=== PATIENT | male | born 1955 | race Caucasian/White ===

== ENCOUNTER 2017-07-21 08:54 | Emergency (ER) | payer BC, MEDICARE ==
--- OUTSIDE RECORDS SUMMARY | 2017-07-21 09:08 | XMS REPORT ---
:1955 External Reference #:[id number] Author Organization [facility] Address [address] [address] Phone [phone] Care Team Providers Name Role Phone David Eduardo DO Care Team Information Company Marker Unavailable Payers Type Date Identification Numbers Payment Provider Subscriber Health Maintenance Effective: Policy Number: [facility] / Marjorie Parrish Jose Laurent Organization (O) 11/22/2012 [id number] Plan PayID: [id number] [address] [place] [address] Medigap Part B Expires: 12/23/2013 [facility] [place] [address] Problems Date Description Provider Status Onset: 11/07/2013 Testicular hypofunction David Eduardo DO Active Onset: 12/28/2012 Mixed hyperlipidemia David Eduardo DO Active Onset: 11/29/2012 Obesity David Eduardo DO Active Onset: 11/29/2012 Insomnia David Eduardo DO Active Onset: 11/29/2012 Chronic obstructive lung disease David Eduardo DO Active Onset: 12/27/2011 Benign essential hypertension Ofe Sepulveda NP Active Onset: 10/15/2014 Pure hypercholesterolemia David Eduardo DO Active Family History Date Family Member(s) Problem(s) Comments General Stroke General Diabetes, Adult General Hypertension General Asthma General Allergies General COPD General Alcoholism General Hypercholesterolemia Mother Cancer, Lung Social History Type Date Description Comments Marital Status Occupation Moving [employer]- [employer] Cigarette Use Former Cigarette Smoker ETOH Use Has consumed alcohol in the past Recreational Drug Use Denies Drug Use Daily Caffeine Consumes on average 4 cups of coffee per day Allergies, Adverse Reactions, Alerts Date Description Reaction Status Severity Comments 08/08/2014 NKDA active 11/29/2012 Seasonal active Medications Medication Date Status Form Strength Qnty SIG Indications Ordering Provider Viagra 07/06 Active Tablets 100mg 6tabs 1/2 to 1 by Eduardo mouth every David, day as DO needed Hydrochlorothiazid 07/06 Active Tablets 25mg 90tab 1 by mouth Eduardo, e s every day DO David Trazodone HCL 10/08 Active Tablets 100mg 30tab Take / To s 1 Tablet By David Mouth At DO Bedtime as Needed Insomnia Cetirizine HCL 07/05 Active Tablets 10mg 90tab 1 PO QHS J30.9 Eduardo s DO David 3ML Syringe/22G X 05/26 Active Misc 22G X 1" 90uni Use as E29.1 Eduardo, 1"/Luer Lock Tip 3 ML ts Directed DO David Clotrimazole/Betam 01/03 Active Cream 1-0.05% 45gm apply topically Mahin Hernandez to affected DO area 2 times a day as needed Lisinopril 12/25 Active Tablets 40mg 90tab 1 By Mouth s Every Day DO David Zetia 12/09 Active Tablets 10mg 30tab 1 By Mouth E78.2 Eduardo s Every Day DO David Testosterone 07/04 Active Solution 200mg/ml 6ml inject 1 Eduardo Cypionate milliliters David every 2 DO weeks im. code f. Clotrimazole/Betam 01/03 Hx Cream 45uni apply twice ts a day to Mahin Hernandez - the r foot DO 01/03 for the next 2 weeks Escitalopram 10/16 Hx Tablets 10mg 30tab 1 By Mouth F32.9 Eduardo, s Every Day David - DO 07/05 Clotrimazole/Betam 03/07 Hx Cream 45gm apply twice Eduardo, ethasone /2013 a day to Jose Roberto Hernandezropionate - the R foot DO 10/16 for the next 2 weeks Clotrimazole/Betam 03/07 Hx Cream 45uni apply twice Eduardo, ethasone ts a day to Candida Hernandezionate - the R foot DO 12/09 for the next 2 weeks Trazodone HCL 11/28 Hx Tablets 100mg 30tab take 1 Eduardo, s tablet po David, - qhs DO 10/16 Trazodone HCL 11/28 Hx Tablets 100mg 30tab take 1 Eduardo, s tablet po David, - qhs DO 12/09 Lisinopril 12/28 Hx Tablets 20mg 90tab 1 by mouth s every day David, - DO 12/25 Aleve PM 00/00 Hx Tablets 220-25mg Unknown /0000 - 10/08 Vital Signs Date Vital Result Comment 07/06/2017 Weight 236.00 lb Heart Rate 72 /min BP Systolic 152 mmHg BP Diastolic 90 mmHg BP Systolic Recheck 148 mmHg BP Diastolic Recheck 86 mmHg Respiratory Rate 18 /min Height 69 inches 5'9" (06/2016) BMI (Body Mass Index) 34.8 kg/m2 01/03/2017 Weight 236.00 lb Heart Rate 80 /min BP Systolic 138 mmHg BP Diastolic 84 mmHg Respiratory Rate 20 /min Height 69 inches 5'9" (06/2016) BMI (Body Mass Index) 34.8 kg/m2 07/05/2016 Weight 240.00 lb Heart Rate 86 /min BP Systolic 162 mmHg BP Diastolic 108 mmHg Respiratory Rate 18 /min Height 69 inches 5'9" (06/2016) BMI (Body Mass Index) 35.4 kg/m2 12/26/2015 Weight 239.00 lb Heart Rate 84 /min BP Systolic 158 mmHg BP Diastolic 86 mmHg BP Systolic Recheck 146 mmHg BP Diastolic Recheck 90 mmHg Respiratory Rate 19 /min Height 69 inches 5'9" BMI (Body Mass Index) 35.3 kg/m2 06/18/2015 Weight 231.00 lb Heart Rate 84 /min BP Systolic 144 mmHg BP Diastolic 88 mmHg Respiratory Rate 19 /min Height 69 inches 5'9" BMI (Body Mass Index) 34.1 kg/m2 06/12/2015 Weight 231.00 lb Heart Rate 72 /min BP Systolic 136 mmHg BP Diastolic 72 mmHg Respiratory Rate 16 /min Height 69 inches 5'9" BMI (Body Mass Index) 34.1 kg/m2 12/09/2014 Weight 222.00 lb Heart Rate 76 /min BP Systolic 154 mmHg BP Diastolic 88 mmHg BP Systolic Recheck 132 mmHg BP Diastolic Recheck 86 mmHg Respiratory Rate 18 /min Height 69 inches 5'9" BMI (Body Mass Index) 32.8 kg/m2 10/16/2014 Weight 221.00 lb Heart Rate 74 /min BP Systolic 130 mmHg BP Diastolic 78 mmHg Respiratory Rate 18 /min Height 69 inches 5'9" 12/10/13 BMI (Body Mass Index) 32.6 kg/m2 06/06/2014 Weight 225.00 lb Heart Rate 72 /min BP Systolic 132 mmHg BP Diastolic 70 mmHg Respiratory Rate 18 /min Height 69 inches 5'9" 12/10/13 04/30/2014 Weight 225.00 lb Heart Rate 72 /min BP Systolic 144 mmHg BP Diastolic 82 mmHg Respiratory Rate 18 /min Height 69 inches 5'9" 12/10/13 03/07/2014 Weight 222.00 lb Same Heart Rate 76 /min BP Systolic 144 mmHg L/LG BP Diastolic 92 mmHg L/LG Respiratory Rate 21 /min Height 69 inches 5'9" 12/10/13 12/10/2013 BP Systolic 136 mmHg BP Diastolic 74 mmHg 12/10/2013 Weight 222.00 lb Heart Rate 80 /min BP Systolic 136 mmHg BP Diastolic 94 mmHg Respiratory Rate 18 /min Height 69 inches 5'9" 12/10/13 12/05/2013 Body Temperature 98.8 F Heart Rate 80 /min BP Systolic 128 mmHg BP Diastolic 82 mmHg Respiratory Rate 18 /min 11/07/2013 Weight 226.00 lb Heart Rate 82 /min BP Systolic 132 mmHg BP Diastolic 90 mmHg Respiratory Rate 21 /min O2 % BldC Oximetry 96 % 08/03/2013 Weight 234.00 lb Heart Rate 72 /min BP Systolic 142 mmHg BP Diastolic 96 mmHg Respiratory Rate 18 /min 07/04/2013 Weight 225.00 lb Heart Rate 70 /min BP Systolic 144 mmHg BP Diastolic 90 mmHg Respiratory Rate 18 /min 04/30/2013 Body Temperature 98.3 F Weight 219.00 lb Heart Rate 64 /min BP Systolic 138 mmHg BP Diastolic 88 mmHg Respiratory Rate 18 /min O2 % BldC Oximetry 96 % 04/26/2013 Body Temperature 98.6 F Weight 220.00 lb Heart Rate 72 /min BP Systolic 130 mmHg BP Diastolic 82 mmHg Respiratory Rate 18 /min 12/28/2012 BP Systolic 136 mmHg BP Diastolic 92 mmHg 12/28/2012 Weight 216.00 lb Heart Rate 68 /min BP Systolic 146 mmHg BP Diastolic 96 mmHg Respiratory Rate 17 /min Height 68.5 inches 5'8.50" (11/2012) 11/29/2012 Weight 215.00 lb Heart Rate 72 /min BP Systolic 130 mmHg BP Diastolic 94 mmHg Respiratory Rate 18 /min Height 68.5 inches 5'8.50" (11/2012) 12/27/2011 Weight 204.00 lb Heart Rate 80 /min BP Systolic 120 mmHg BP Diastolic 82 mmHg Respiratory Rate 20 /min Height 68 inches 5'8" Results Test Date Test Result H/L Range Note Basic (BMP) 07/01/2017 Sodium 140 mmol/L 135-146 1, 2 Potassium 4.8 mmol/L 3.5-5.2 1 Chloride# 100 mmol/L 97-110 1, 3 Carbon Dioxide 31 mmol/L 24-34 1 Glucose 113 mg/dL High 70-105 1 Creatinine 1.1 mg/dL 0.5-1.4 1 Calcium 9.2 mg/dL 8.5-10.2 1 Non Aleksandra Egfr >60 >60 1, 4 Aleksandra Egfr >60 >60 1, 5 Anion Gap 9 mmol/L 7-16 1, 6 BUN 11 mg/dL 6-26 1 Hemoglobin A1c 07/01/2017 Hemoglobin A1c 6.1 % High 4.1-5.9 1 Estimated Average Glucose Calc 128 71-140 1 Laboratory test finding 07/01/2017 TSH 1.71 uIU/mL 0.35-4.94 1 Lipid Treatment 07/01/2017 Cholesterol 197 mg/dL 50-199 1 Triglycerides 93 mg/dL 30-200 1 HDL 41 mg/dL 29-71 1, 7 Chol/ HDL Ratio 4.8 ratio 4.0-6.7 1 VLDL 19 mg/dL 2-29 1 LDL (Calc) 137 mg/dL High 20-99 1, 8 Alt 37 U/L 3-42 1 Ast 25 U/L 8-42 1 CBC With Auto Diff 07/01/2017 WBC 11.0 K/uL 4.1-11.0 1 RBC 4.87 M/uL 4.60-6.10 1 Hemoglobin 15.5 gm/dL 13.5-18.0 1 Hematocrit 47.1 % 41.0-53.0 1 MCV 96.6 fL 80.0-97.0 1 MCH 31.8 pg 27.0-32.0 1 MCHC 32.9 g/dL 32.0-36.0 1 RDW 14.2 % 11.5-14.5 1 PLT Count Unable to report <SEE NOTE> K/ul 140-400 1, 9 MPV Unable to report <SEE NOTE> FL 7.1-10.7 1, 10 Neutrophil 53.9 % 35.0-75.0 1, 11 Lymphocyte 30.2 % 16.0-52.0 1, 12 Monocyte 12.5 % High 2.0-10.0 1, 13 Eosinophil 2.4 % 0.0-5.0 1, 14 Basophil 1.0 % 0.0-4.0 1, 15 Abs Neutrophils 5.9 K/uL 2.1-8.0 1, 16 Abs Lymphocytes 3.3 K/uL 0.8-5.5 1, 17 Abs Monocytes 1.4 K/uL High 0.1-1.0 1, 18 Abs Eosinophils 0.3 K/uL 0.0-0.5 1, 19 Abs Basophils 0.1 K/uL 0.0-0.3 1, 20 Laboratory test finding 07/01/2017 PSA 1.030 ng/mL 0.000-4.000 1, 21 Total Testosterone Adult Male 828 ng/dL 1 Hemoglobin A1c 12/27/2016 Hemoglobin A1c 6.1 % High 4.1-5.9 Estimated Average Glucose Calc 128 71-140 Testosterone,Free & 12/27/2016 Testosterone Total Adult 463 ng/dL Total-Male Male Sex Hormone Binding Globulin 18.5 nmol/L 13.3-89.5 Testosterone Free Adult Male 128 pg/mL 50-247 Testosterone Percent Free 2.8 % 1.8-3.2 Laboratory test finding 12/27/2016 PSA 0.820 ng/mL 0.000-4.000 22 CBC With Auto Diff 12/27/2016 WBC 7.7 K/uL 4.1-11.0 RBC 4.99 M/uL 4.60-6.10 Hemoglobin 15.6 gm/dL 13.5-18.0 Hematocrit 47.3 % 41.0-53.0 MCV 94.7 fL 80.0-97.0 MCH 31.2 pg 27.0-32.0 MCHC 33.0 g/dL 32.0-36.0 RDW 13.7 % 11.5-14.5 PLT Count Platelets clumpe <SEE NOTE> K/ul 140-400 23 Neutrophil 53.3 % 35.0-75.0 Lymphocyte 30.4 % 16.0-52.0 Monocyte 12.7 % High 2.0-10.0 Eosinophil 2.8 % 0.0-5.0 Basophil 0.8 % 0.0-4.0 Abs Neutrophils 4.1 K/uL 2.1-8.0 Abs Lymphocytes 2.3 K/uL 0.8-5.5 Abs Monocytes 1.0 K/uL 0.1-1.0 Abs Eosinophils 0.2 K/uL 0.0-0.5 Abs Basophils 0.1 K/uL 0.0-0.3 Basic (BMP) 12/27/2016 Sodium 139 mmol/L 135-146 24 Potassium 4.6 mmol/L 3.5-5.2 Chloride# 103 mmol/L 97-110 25 Carbon Dioxide 27 mmol/L 24-34 Glucose 120 mg/dL High 70-105 BUN 13 mg/dL 6-26 Creatinine 1.2 mg/dL 0.5-1.4 Calcium 9.5 mg/dL 8.5-10.2 Non Aleksandra Egfr >60 >60 26 Aleksandra Egfr >60 >60 27 Anion Gap 14 mmol/L 7-16 28 Lipid Treatment 12/27/2016 Cholesterol 181 mg/dL 50-199 Triglycerides 97 mg/dL 30-200 HDL 35 mg/dL 29-71 29 Chol/ HDL Ratio 5.2 ratio 4.0-6.7 VLDL 19 mg/dL 2-29 LDL (Calc) 127 mg/dL High 20-99 30 Alt 34 U/L 3-42 Ast 22 U/L 8-42 Laboratory test 12/27/2016 TSH 1.45 uIU/mL 0.35-4.94 finding Laboratory test 12/03/2016 H. Pylori Stool Negative Negative 31, 32 finding Antigen Lipid Treatment 06/28/2016 Cholesterol 239 mg/dL High 50-199 Triglycerides 118 mg/dL 30-200 HDL 42 mg/dL 29-71 33 Chol/ HDL Ratio 5.7 ratio 4.0-6.7 VLDL 24 mg/dL 2-29 LDL (Calc) 173 mg/dL High 20-99 34 Alt 39 U/L 3-42 Ast 29 U/L 8-42 Laboratory test finding 06/28/2016 Total Testosterone Adult 1078 ng/dL High 285-950 Male CBC With Auto Diff 06/28/2016 WBC 12.0 K/uL High 4.1-11.0 RBC 5.08 M/uL 4.60-6.10 Hemoglobin 16.4 gm/dL 13.5-18.0 Hematocrit 48.3 % 41.0-53.0 MCV 95.1 fL 80.0-97.0 MCH 32.3 pg High 27.0-32.0 MCHC 34.0 g/dL 32.0-36.0 RDW 13.1 % 11.5-14.5 PLT Count Platelets clumpe <SEE NOTE> K/ul 140-400 35 Basic (BMP) 06/28/2016 Sodium 138 mmol/L 134-142 Potassium 4.7 mmol/L 3.5-5.2 Chloride 100 mmol/L 97-109 Carbon Dioxide 32 mmol/L 24-34 Glucose 117 mg/dL High 70-105 BUN 11 mg/dL 6-26 Creatinine 1.0 mg/dL 0.5-1.4 Calcium 9.2 mg/dL 8.5-10.2 Anion Gap 11 mmol/L 6-14 Non Aleksandra Egfr >60 >60 36 Aleksandra Egfr >60 >60 37 Laboratory test finding 06/28/2016 PSA 1.200 ng/mL 0.000-4.000 38 Manual Differential 06/28/2016 Neutrophils 55 % 35-75 Lymphocytes 31 % 16-52 Atypical Lymphs 1 0-5 Monocytes 11 % High 0-8 Eosinophils 2 % 0-5 Basophils 0 % 0-4 Platelet Estimate Unable to perfor <SEE NOTE> Normal 39 RBC Morphology Normal Normal Abs Neutrophils# 6.6 K/ul 1.8-7.7 Abs Lymphocytes# 3.7 K/ul 1.2-4.8 Abs Monocytes# 1.3 K/ul High 0.0-0.8 Abs Eosinophils# 0.2 K/ul 0.0-0.5 Abs Basophils# 0.0 K/ul 0.0-0.3 Abs Atypical Lymphocytes# 0.1 K/ul 0.0-0.5 Laboratory test finding 12/19/2015 Total Testosterone Adult 1011 ng/dL High 285-950 40 Male PSA 1.120 ng/mL 0.000-4.000 40, 41 Lipid Treatment 12/19/2015 Cholesterol 230 mg/dL High 50-199 40 Triglycerides 131 mg/dL 30-200 40 HDL 43 mg/dL 29-71 40, 42 Chol/ HDL Ratio 5.3 ratio 4.0-6.7 40 VLDL 26 mg/dL 2-29 40 LDL (Calc) 161 mg/dL High 20-99 40, 43 Alt 31 U/L 3-42 40 Ast 24 U/L 8-42 40 CBC With Auto Diff 12/19/2015 WBC 9.5 K/uL 4.1-11.0 40 RBC 5.10 M/uL 4.60-6.10 40 Hemoglobin 16.2 gm/dL 13.5-18.0 40 Hematocrit 48.0 % 41.0-53.0 40 MCV 94.1 fL 80.0-97.0 40 MCH 31.9 pg 27.0-32.0 40 MCHC 33.9 g/dL 32.0-36.0 40 RDW 13.5 % 11.5-14.5 40 PLT Count Platelets clumpe <SEE NOTE> K/ul 140-400 40, 44 Neutrophil 47.3 % 35.0-75.0 40 Lymphocyte 32.3 % 16.0-52.0 40 Monocyte 12.8 % High 2.0-10.0 40 Eosinophil 6.5 % High 0.0-5.0 40 Basophil 1.1 % 0.0-4.0 40 Abs Neutrophils 4.5 K/uL 2.1-8.0 40 Abs Lymphocytes 3.0 K/uL 0.8-5.5 40 Abs Monocytes 1.2 K/uL High 0.1-1.0 40 Abs Eosinophils 0.6 K/uL High 0.0-0.5 40 Abs Basophils 0.1 K/uL 0.0-0.3 40 Basic (BMP) 12/19/2015 Sodium 137 mmol/L 134-142 40 Potassium 4.9 mmol/L 3.5-5.2 40 Chloride 103 mmol/L 97-109 40 Carbon Dioxide 27 mmol/L 24-34 40 Glucose 112 mg/dL High 70-105 40 BUN 11 mg/dL 6-26 40 Creatinine 1.0 mg/dL 0.5-1.4 40 Calcium 9.4 mg/dL 8.5-10.2 40 Anion Gap 12 mmol/L 6-14 40 Non Aleksandra Egfr >60 >60 40, 45 Aleksandra Egfr >60 >60 40, 46 Laboratory test finding 12/19/2015 TSH 1.87 uIU/mL 0.35-4.94 40 Lipid Treatment 06/04/2015 Cholesterol 218 mg/dL High 50-199 Triglycerides 150 mg/dL 30-200 HDL 35 mg/dL 29-71 47 Chol/ HDL Ratio 6.2 ratio 4.0-6.7 VLDL 30 mg/dL High 2-29 LDL (Calc) 153 mg/dL High 20-99 48 Alt 34 U/L 3-42 Ast 23 U/L 8-42 CBC With Auto Diff 06/04/2015 WBC 8.9 K/uL 4.1-11.0 RBC 5.16 M/uL 4.60-6.10 Hemoglobin 16.2 gm/dL 13.5-18.0 Hematocrit 49.0 % 41.0-53.0 MCV 95.0 fL 80.0-97.0 MCH 31.5 pg 27.0-32.0 MCHC 33.1 g/dL 32.0-36.0 RDW 13.2 % 11.5-14.5 PLT Count Platelets clumpe <SEE NOTE> K/ul 140-400 49 Basic (BMP) 06/04/2015 Sodium 134 mmol/L 134-142 Potassium 4.9 mmol/L 3.5-5.2 Chloride 101 mmol/L 97-109 Carbon Dioxide 28 mmol/L 24-34 Glucose 99 mg/dL 70-105 BUN 12 mg/dL 6-26 Creatinine 0.8 mg/dL 0.5-1.4 Calcium 9.1 mg/dL 8.5-10.2 Anion Gap 10 mmol/L 6-14 Non Aleksandra Egfr >60 >60 50 Aleksandra Egfr >60 >60 51 Laboratory test finding 06/04/2015 Total Testosterone Adult 664 ng/dL 285 -950 Male TSH 1.24 uIU/mL 0.35-4.94 Manual Differential 06/04/2015 Neutrophils 62 % 35-75 Lymphocytes 27 % 16-52 Monocytes 10 % High 0-8 Eosinophils 1 % 0-5 Basophils 0 % 0-4 Platelet Estimate Unable to perfor <SEE NOTE> Normal 52 RBC Morphology Normal Normal Abs Neutrophils# 5.5 K/ul 1.8-7.7 Abs Lymphocytes# 2.4 K/ul 1.2-4.8 Abs Monocytes# 0.9 K/ul High 0.0-0.8 Abs Eosinophils# 0.1 K/ul 0.0-0.5 Abs Basophils# 0.0 K/ul 0.0-0.3 Basic (BMP) 12/04/2014 Sodium 139 mmol/L 134-142 Potassium 4.9 mmol/L 3.5-5.2 Chloride 104 mmol/L 97-109 Carbon Dioxide 28 mmol/L 24-34 Glucose 106 mg/dL High 70-105 BUN 16 mg/dL 6-26 Creatinine 0.9 mg/dL 0.5-1.4 Calcium 9.4 mg/dL 8.5-10.2 Anion Gap 12 mmol/L 6-14 Non Aleksandra Egfr >60 >60 53 Aleksandra Egfr >60 >60 54 CBC With Auto Diff 12/04/2014 WBC 11.2 K/uL High 4.1-11.0 RBC 5.10 M/uL 4.60-6.10 Hemoglobin 16.0 gm/dL 13.5-18.0 Hematocrit 48.0 % 41.0-53.0 MCV 94.0 fL 80.0-97.0 MCH 31.3 pg 27.0-32.0 MCHC 33.3 g/dL 32.0-36.0 RDW 13.7 % 11.5-14.5 PLT Count Platelets clumpe <SEE NOTE> K/ul 140-400 55 Neutrophil 44.2 % 35.0-75.0 Lymphocyte 40.6 % 16.0-52.0 Monocyte 10.9 % High 2.0-10.0 Eosinophil 3.5 % 0.0-5.0 Basophil 0.8 % 0.0-4.0 Abs Neutrophils 4.9 K/uL 2.1-8.0 Abs Lymphocytes 4.5 K/uL 0.8-5.5 Abmon 1.2 K/uL High 0.1-1.0 Abs Eosinophils 0.4 K/uL 0.0-0.5 Abs Basophils 0.1 K/uL 0.0-0.3 Lipid Treatment 12/04/2014 Cholesterol 250 mg/dL High 50-199 Triglycerides 205 mg/dL High 30-200 HDL 32 mg/dL 29-71 56 Chol/ HDL Ratio 7.8 ratio High 4.0-6.7 VLDL 41 mg/dL High 2-29 LDL (Calc) 177 mg/dL High 20-99 57 Alt 30 U/L 3-42 Ast 22 U/L 8-42 Laboratory test finding 12/04/2014 TSH 2.28 uIU/mL 0.35-4.94 Testosterone,Free & 12/04/2014 Testosterone Total Adult 519 ng/dL 285 -950 Total-Male Male Sex Hormone Binding Globulin 23.2 nmol/L 13.3-89.5 Testosterone Free Adult Male 132 pg/mL 50-247 Testosterone Percent Free 2.6 % 1.8-3.2 Laboratory test finding 12/04/2014 PSA 1.290 ng/mL 0.000-4.000 58 Urine Screen 07/11/2014 Urine Bilirubin - Negative Negative Dipstick Urine Blood Negative Negative Urine Clarity Clear Clear Urine Color Yellow Yellow Urine Glucose - Dipstick Negative mg/dL Negative Urine Ketone Negative mg/dL Negative Urine Leuk Esterase Negative Negative Urine Nitrite - Dipstick Negative Negative Urine PH 7.0 6.5-7.5 Urine Protein - Dipstick Negative mg/dL Negative Urine Specific Calera 1.010 1.010-1.030 Urine Urobilinogen - Dipstick 0.2 E.U./dL 0.2-1.0 Laboratory test finding 07/10/2014 Act Partial Thrombo Time 38.7 s High 23.9-34.3 59 Anion Gap 9 mEq/L 8-16 BUN 10 mg/dL 7-18 BUN/Creat 9.0 ratio CK 160 U/L 39-308 Calcium 9.3 mg/dL 8.5-10.1 Carbon Dioxide 30 mmol/L 21-32 Chloride 105 mmol/L 98-107 Creatinine 1.1 mg/dL 0.6-1.3 Glom Filtration Rate, Estimate >60 mL/min >60 Glucose 106 mg/dL 74-106 If >60 mL/min >60 60 Potassium 4.4 mmol/L 3.5-5.1 Sodium 140 mmol/L 136-145 Troponin-I < 0.02 ng/mL 61 CBS W/Automated Diff 07/10/2014 Bas% 0.3 % 0.1-1.0 Baso # 0.03 K/uL Low 0.1-0.2 Eo% 5.1 % High 0.0-5.0 Eos # 0.47 K/uL 0.0-0.5 Hematocrit 45.9 % 38.0-48.0 Hemoglobin 15.6 gm/dL 12.8-17.0 Lymph # 3.23 K/uL 1.2-4.0 Lymph % 35.3 % 17.0-56.0 Mean Cell Volume 93.9 fl 80.0-96.0 Mean Corpuscular HGB 31.9 pg 27.0-33.0 Mean Corpuscular HGB Conc 34.0 g/dL 31.7-36.0 Mean Platelet Volume 10.8 fL High 6.6-10.6 Atlantic # 1.28 K/uL High 0.0-0.6 Atlantic % 14.0 % High 0.0-10.0 Neut# 4.15 K/uL 1.8-7.0 Neut% 45.3 % 33.0-73.0 Platelet Count 363 K/uL 150-400 Red Blood Count 4.89 M/uL 4.20-5.80 Red Cell Distri Width %CV 13.0 % 11.6-15.8 Red Cell Distri Width SD 43.6 fl 36-51 White Blood Count 9.2 K/uL 3.4-10.5 Protime 07/10/2014 Inr 0.9 0.9-1.1 62 Protime 12.1 s 12.1-14.9 LDL Cholesterol Profile 05/03/2014 Cholesterol 234 mg/dL 63 HDL Cholesterol 36 mg/dL 64 LDL-Cholesterol 173 mg/dL 65 Triglycerides 124 mg/dL 66 Laboratory test finding 05/03/2014 Comment See Note . 67 SGPT/Alt 44 U/L 12-78 Sgot/Ast 25 U/L 15-37 Testosterone,Serum 781 ng/dL 348-1197 LDL Cholesterol Profile 10/31/2013 Cholesterol 219 mg/dL High 120-200 HDL Cholesterol 33 mg/dL 29-83 LDL-Cholesterol 157 mg/dL 62-185 Triglycerides 147 mg/dL 16-231 Laboratory test finding 10/31/2013 Alb/Glob 1.1 ratio Albumin 3.7 g/dL 3.5-5.0 Alkaline Phosphatase 74 U/L 50-136 Anion Gap 8 mEq/L 8-16 BUN 11 mg/dL 5-23 BUN/Creat 11.0 ratio Bilirubin,Total 0.5 mg/dL 0.2-1.2 Calcium 9.1 mg/dL 8.5-10.1 Carbon Dioxide 32 mEq/L High 18-29 Chloride 104 mmol/L 98-107 Creatinine 1.0 mg/dL 0.5-1.4 Globulin 3.4 g/dL 1.9-4.3 Glom Filtration Rate, Estimate >60 mL/min >60 Glucose 93 mg/dL 76-115 If >60 mL/min >60 68 NT-proBNP 8.0 pg/mL <325.0 Potassium 3.7 mmol/L 3.5-5.1 Prostate Specific Antigen 0.76 ng/mL 0.00-4.00 69 SGPT/Alt 59 U/L 30-65 Sgot/Ast 24 U/L 16-40 Sodium 140 mmol/L 136-145 Testosterone,Serum 768 ng/dL 348-1197 70 Total Protein 7.1 g/dL 6.3-8.0 Testosterone,Free/Weakly 07/27/2013 Testosterone,%Free/Weakly 27.4 % 9.0- 46.0 Bound BND Testosterone,Free+Weakly Bound 155.6 ng/dL 40.0-250.0 71 Testosterone,Serum 568 ng/dL 348-1197 LDL Cholesterol Profile 07/27/2013 Cholesterol 273 mg/dL High 120-200 HDL Cholesterol 41 mg/dL 29-83 LDL-Cholesterol 210 mg/dL High 62-185 Triglycerides 109 mg/dL 16-231 Laboratory test finding 07/27/2013 Prostate Specific 1.91 ng/mL 0.00- 4.00 72 Antigen SGPT/Alt 40 U/L 30-65 Sgot/Ast 22 U/L 16-40 Thyroid Stim Hormone 1.14 uIU/mL 0.49-4.67 Laboratory test finding 06/29/2013 Alb/Glob 1.8 ratio Albumin 3.9 g/dL 3.5-5.0 Alkaline Phosphatase 72 U/L 50-136 Anion Gap 11 mEq/L 8-16 BUN 16 mg/dL 5-23 BUN/Creat 14.5 ratio Bilirubin,Total 0.3 mg/dL 0.2-1.2 Calcium 9.4 mg/dL 8.5-10.1 Carbon Dioxide 31 mEq/L High 18-29 Chloride 104 mmol/L 98-107 Creatinine 1.1 mg/dL 0.5-1.4 Globulin 2.2 g/dL 1.9-4.3 Glom Filtration Rate, Estimate >60 mL/min >60 Glucose 117 mg/dL High 76-115 Glycohemoglobin (A1c) 5.8 % 4.8-6.0 73 If >60 mL/min >60 74 Potassium 4.6 mmol/L 3.5-5.1 SGPT/Alt 46 U/L 30-65 Sgot/Ast 24 U/L 16-40 Sodium 141 mmol/L 136-145 Testosterone,Serum 472 ng/dL 348-1197 75 Total Protein 6.1 g/dL Low 6.3-8.0 eAG 120 mg/dL LDL Cholesterol Profile 06/29/2013 Cholesterol 272 mg/dL High 120-200 HDL Cholesterol 38 mg/dL 29-83 LDL-Cholesterol 197 mg/dL High 62-185 Triglycerides 186 mg/dL 16-231 Laboratory test finding 05/11/2013 Alb/Glob 0.9 ratio Albumin 3.6 g/dL 3.5-5.0 Alkaline Phosphatase 84 U/L 50-136 Anion Gap 12 mEq/L 8-16 Atypical Lymph% 6 % 0-7 BUN 13 mg/dL 5-23 BUN/Creat 14.4 ratio Band% 5 % 0-8 Bilirubin,Total 0.5 mg/dL 0.2-1.2 Calcium 8.6 mg/dL 8.5-10.1 Carbon Dioxide 26 mEq/L 18-29 Chloride 104 mmol/L 98-107 Creatinine 0.9 mg/dL 0.5-1.4 Eosinophil% 2 % 0-5 Globulin 3.9 g/dL 1.9-4.3 Glom Filtration Rate, Estimate >60 mL/min >60 Glucose 104 mg/dL 76-115 If >60 mL/min >60 76 Lipase 160 U/L 28-380 77 Lymph% 13 % Low 17-56 Monocyte% 12 % High 0-10 Neutrophils% 62 % 33-73 Platelet Estimate Normal Potassium 4.4 mmol/L 3.5-5.1 RBC Morphology Normal SGPT/Alt 56 U/L 30-65 Sgot/Ast 30 U/L 16-40 Sodium 138 mmol/L 136-145 Total Cells Counted 100 #CELLS Total Protein 7.5 g/dL 6.3-8.0 CBS W/Automated Diff 05/11/2013 Hematocrit 42.5 % 38.0-48.0 Hemoglobin 14.4 gm/dL 12.8-17.0 Mean Cell Volume 91.4 fl 80.0-96.0 Mean Corpuscular HGB 31.0 pg 27.0-33.0 Mean Corpuscular HGB Conc 33.9 g/dL 31.7-36.0 Mean Platelet Volume 11.9 fL High 6.6-10.6 Platelet Count 310 K/uL 150-400 Red Blood Count 4.65 M/uL 4.20-5.80 Red Cell Distri Width %CV 12.9 % 11.6-15.8 Red Cell Distri Width SD 42.0 fl 36-51 White Blood Count 15.0 K/uL High 3.4-10.5 Urine Screen 05/11/2013 Urine Bilirubin - Dipstick Negative Negative Urine Blood Negative Negative Urine Clarity Clear Clear Urine Color Yellow Yellow Urine Glucose - Dipstick Negative mg/dL Negative Urine Ketone Negative mg/dL Negative Urine Leuk Esterase Negative Negative Urine Nitrite - Dipstick Negative Negative Urine PH 7.0 6.5-7.5 Urine Protein - Dipstick Negative mg/dL Negative Urine Specific Calera <=1.005 Low 1.010-1.030 Urine Urobilinogen - Dipstick 0.2 E.U./dL 0.2-1.0 Laboratory test finding 02/12/2013 Anion Gap 12 mEq/L 8-16 BUN 20 mg/dL 5-23 BUN/Creat 16.6 ratio Calcium 9.3 mg/dL 8.5-10.1 Carbon Dioxide 29 mEq/L 18-29 Chloride 102 mmol/L 98-107 Creatinine 1.2 mg/dL 0.5-1.4 Glom Filtration Rate, Estimate >60 mL/min >60 Glucose 82 mg/dL 76-115 If >60 mL/min >60 78 Potassium 4.1 mmol/L 3.5-5.1 Prostate-Specific Antigen 0.94 ng/mL 0.0-4.0 79 Sodium 139 mmol/L 136-145 Laboratory test finding 12/15/2012 Alb/Glob 1.3 ratio Albumin 3.8 g/dL 3.5-5.0 Alkaline Phosphatase 61 U/L 50-136 Anion Gap 11 mEq/L 8-16 BUN 12 mg/dL 5-23 BUN/Creat 10.0 ratio Bas% 0.4 % 0.1-1.0 Baso # 0.03 K/uL Low 0.1-0.2 Bilirubin,Total 0.3 mg/dL 0.2-1.2 Calcium 9.1 mg/dL 8.5-10.1 Carbon Dioxide 30 mEq/L High 18-29 Chloride 106 mmol/L 98-107 Creatinine 1.2 mg/dL 0.5-1.4 Eo% 5.0 % 0.0-5.0 Eos # 0.34 K/uL 0.0-0.5 Globulin 3.0 g/dL 1.9-4.3 Glom Filtration Rate, Estimate >60 mL/min >60 Glucose 120 mg/dL High 76-115 Hematocrit 42.5 % 38.0-48.0 Hemoglobin 14.3 gm/dL 12.8-17.0 If >60 mL/min >60 80 Lymph # 2.28 K/uL 1.2-4.0 Lymph % 33.7 % 17.0-56.0 Mean Cell Volume 92.8 fl 80.0-96.0 Mean Corpuscular HGB 31.2 pg 27.0-33.0 Mean Corpuscular HGB Conc 33.6 g/dL 31.7-36.0 Mean Platelet Volume 12.6 fL High 6.6-10.6 Atlantic # 0.99 K/uL High 0.0-0.6 Atlantic % 14.6 % High 0.0-10.0 Neut# 3.13 K/uL 1.8-7.0 Neut% 46.3 % 33.0-73.0 Platelet Count 104 K/uL Low 150-400 Potassium 5.4 mmol/L High 3.5-5.1 Red Blood Count 4.58 M/uL 4.20-5.80 Red Cell Distri Width %CV 13.2 % 11.6-15.8 Red Cell Distri Width SD 44.1 fl 36-51 SGPT/Alt 35 U/L 30-65 Sgot/Ast 21 U/L 16-40 Sodium 142 mmol/L 136-145 Thyroid Stim Hormone 1.47 uIU/mL 0.49-4.67 Total Protein 6.8 g/dL 6.3-8.0 White Blood Count 6.8 K/uL 3.4-10.5 LDL Cholesterol Profile 12/15/2012 Cholesterol 186 mg/dL 120-200 HDL Cholesterol 38 mg/dL 29-83 LDL-Cholesterol 133 mg/dL 62-185 Triglycerides 73 mg/dL 16-231 1 Default Test Order (No Match) DO NOT RELEASE PLT COUNT BEFORE A SCAN IS DONE DO NOT RELEASE PLT COUNT BEFORE A SCAN IS DONE 2 Updated reference range on new analyzer 3 Updated reference range on new analyzer 4 Concerning GFR Guidelines: Normal function or mild renal disease, if clinically at risk: >/=60 mL/min Moderately decreased: 30-59 Severely decreased: 15-29 Renal failure: <15 Glomerular Filtration Rate (GFR) is estimated based on the MDRD equation, which assumes a steady state for creatinine as recommended by the National Kidney Disease Education Program in conjunction with the National Institutes of Health and the National Kidney Foundation. Clinical conditions in which it may be necessary to measure GFR by using clearance methods include extremes of age and body size, severe malnutrition or obesity, diseases of skeletal muscle, paraplegia or quadriplegia, vegetarian diet, rapidly changing kidney function, and calculation of the dose of potentially toxic drugs that are excreted by the kidneys. 5 Concerning GFR Guidelines for Americans: Normal function or mild renal disease, if clinically at risk: >/=60 mL/min Moderately decreased: 30-59 Severely decreased: 15-29 Renal failure: <15 6 Updated reference range on new analyzer 7 Per NCEP ATP III Guidelines: Results lower than 40 mg/dL are suggestive of increased risk for coronary artery disease. Results > or=to 60 mg/dL are considered a negative risk factor. 8 Per NCEP ATP III Guidelines: Normal Population <130 Patients with medical conditions: CHD/DM Optimal: <100 Borderline high: 130-159 High: 160-189 Very high: >189 9 Unable to report platelet count due to platelet clumping. Result amended from () (07/04/2017 11:04 AM) to (Unable to report platelet count due to platelet clumping.) (07/04/2017 11:04 AM) by MARILYN. 10 Unable to report platelet count due to platelet clumping. Result amended from () (07/04/2017 11:04 AM) to (Unable to report platelet count due to platelet clumping.) (07/04/2017 11:04 AM) by MARILYN. 11 Result amended from (Not Reported) (07/04/2017 11:04 AM) to (53.9) (07/04/2017 11:04 AM) by MARILYN. 12 Result amended from (Not Reported) (07/04/2017 11:05 AM) to (30.2) (07/04/2017 11:05 AM) by MARILYN. 13 Result amended from (Not Reported) (07/04/2017 11:05 AM) to (12.5) (07/04/2017 11:05 AM) by MARILYN. 14 Result amended from (Not Reported) (07/04/2017 11:05 AM) to (2.4) (07/04/2017 11:05 AM) by MARILYN. 15 Result amended from (Not Reported) (07/04/2017 11:05 AM) to (1.0) (07/04/2017 11:05 AM) by MARILYN. 16 Result amended from (Not Reported) (07/04/2017 11:05 AM) to (5.9) (07/04/2017 11:05 AM) by MARILYN. 17 Result amended from (Not Reported) (07/04/2017 11:05 AM) to (3.3) (07/04/2017 11:05 AM) by MARILYN. 18 Result amended from (Not Reported) (07/04/2017 11:05 AM) to (1.4) (07/04/2017 11:05 AM) by MARILYN. 19 Result amended from (Not Reported) (07/04/2017 11:06 AM) to (0.3) (07/04/2017 11:06 AM) by MARILYN. 20 Result amended from (Not Reported) (07/04/2017 11:06 AM) to (0.1) (07/04/2017 11:06 AM) by MARILYN. 21 Beginning 09/19/06 PSA values assayed at [facility] uses chemiluminescence methodology manufactured by [employer] for use on the DXI analyzer. Values obtained with different assay methods or kits can not be used interchangeably. Serum PSA measurement is not an absolute test for malignancy. The PSA value should be used in conjunction with information available from clinical evaluation and other diagnostic procedures. 22 Beginning 09/19/06 PSA values assayed at [facility] uses chemiluminescence methodology manufactured by [employer] for use on the DXI analyzer. Values obtained with different assay methods or kits can not be used interchangeably. Serum PSA measurement is not an absolute test for malignancy. The PSA value should be used in conjunction with information available from clinical evaluation and other diagnostic procedures. 23 Platelets clumped but appear normal in number. 24 Updated reference range on new analyzer 25 Updated reference range on new analyzer 26 Concerning GFR Guidelines: Normal function or mild renal disease, if clinically at risk: >/=60 mL/min Moderately decreased: 30-59 Severely decreased: 15-29 Renal failure: <15 Glomerular Filtration Rate (GFR) is estimated based on the MDRD equation, which assumes a steady state for creatinine as recommended by the National Kidney Disease Education Program in conjunction with the National Institutes of Health and the National Kidney Foundation. Clinical conditions in which it may be necessary to measure GFR by using clearance methods include extremes of age and body size, severe malnutrition or obesity, diseases of skeletal muscle, paraplegia or quadriplegia, vegetarian diet, rapidly changing kidney function, and calculation of the dose of potentially toxic drugs that are excreted by the kidneys. 27 Concerning GFR Guidelines for Americans: Normal function or mild renal disease, if clinically at risk: >/=60 mL/min Moderately decreased: 30-59 Severely decreased: 15-29 Renal failure: <15 28 Updated reference range on new analyzer 29 Per NCEP ATP III Guidelines: Results lower than 40 mg/dL are suggestive of increased risk for coronary artery disease. Results > or=to 60 mg/dL are considered a negative risk factor. 30 Per NCEP ATP III Guidelines: Normal Population <130 Patients with medical conditions: CHD/DM Optimal: <100 Borderline high: 130-159 High: 160-189 Very high: >189 31 B96.81 32 Performed at: - [facility] [address] [id number] Infrastructure Analyst: Alma Rosa Edward MD, Phone: [phone] 33 Per NCEP ATP III Guidelines: Results lower than 40 mg/dL are suggestive of increased risk for coronary artery disease. Results > or=to 60 mg/dL are considered a negative risk factor. 34 Per NCEP ATP III Guidelines: Normal Population <130 Patients with medical conditions: CHD/DM Optimal: <100 Borderline high: 130-159 High: 160-189 Very high: >189 35 Platelets clumped but appear normal in number. 36 Concerning GFR Guidelines: Normal function or mild renal disease, if clinically at risk: >/=60 mL/min Moderately decreased: 30-59 Severely decreased: 15-29 Renal failure: <15 Glomerular Filtration Rate (GFR) is estimated based on the MDRD equation, which assumes a steady state for creatinine as recommended by the National Kidney Disease Education Program in conjunction with the National Institutes of Health and the National Kidney Foundation. Clinical conditions in which it may be necessary to measure GFR by using clearance methods include extremes of age and body size, severe malnutrition or obesity, diseases of skeletal muscle, paraplegia or quadriplegia, vegetarian diet, rapidly changing kidney function, and calculation of the dose of potentially toxic drugs that are excreted by the kidneys. 37 Concerning GFR Guidelines for Americans: Normal function or mild renal disease, if clinically at risk: >/=60 mL/min Moderately decreased: 30-59 Severely decreased: 15-29 Renal failure: <15 38 Beginning 09/19/06 PSA values assayed at [facility] uses chemiluminescence methodology manufactured by [employer] for use on the DXI analyzer. Values obtained with different assay methods or kits can not be used interchangeably. Serum PSA measurement is not an absolute test for malignancy. The PSA value should be used in conjunction with information available from clinical evaluation and other diagnostic procedures. 39 Unable to perform accurate count due to platelet clumping 40 Fastin hours 41 Beginning 09/19/06 PSA values assayed at [facility] uses chemiluminescence methodology manufactured by [employer] for use on the DXI analyzer. Values obtained with different assay methods or kits can not be used interchangeably. Serum PSA measurement is not an absolute test for malignancy. The PSA value should be used in conjunction with information available from clinical evaluation and other diagnostic procedures. 42 Per NCEP ATP III Guidelines: Results lower than 40 mg/dL are suggestive of increased risk for coronary artery disease. Results > or=to 60 mg/dL are considered a negative risk factor. 43 Per NCEP ATP III Guidelines: Normal Population <130 Patients with medical conditions: CHD/DM Optimal: <100 Borderline high: 130-159 High: 160-189 Very high: >189 44 Platelets clumped but appear normal in number. 45 Concerning GFR Guidelines: Normal function or mild renal disease, if clinically at risk: >/=60 mL/min Moderately decreased: 30-59 Severely decreased: 15-29 Renal failure: <15 Glomerular Filtration Rate (GFR) is estimated based on the MDRD equation, which assumes a steady state for creatinine as recommended by the National Kidney Disease Education Program in conjunction with the National Institutes of Health and the National Kidney Foundation. Clinical conditions in which it may be necessary to measure GFR by using clearance methods include extremes of age and body size, severe malnutrition or obesity, diseases of skeletal muscle, paraplegia or quadriplegia, vegetarian diet, rapidly changing kidney function, and calculation of the dose of potentially toxic drugs that are excreted by the kidneys. 46 Concerning GFR Guidelines for Americans: Normal function or mild renal disease, if clinically at risk: >/=60 mL/min Moderately decreased: 30-59 Severely decreased: 15-29 Renal failure: <15 47 Per NCEP ATP III Guidelines: Results lower than 40 mg/dL are suggestive of increased risk for coronary artery disease. Results > or=to 60 mg/dL are considered a negative risk factor. 48 Per NCEP ATP III Guidelines: Normal Population <130 Patients with medical conditions: CHD/DM Optimal: <100 Borderline high: 130-159 High: 160-189 Very high: >189 49 Platelets clumped but appear normal in number. 50 Concerning GFR Guidelines: Normal function or mild renal disease, if clinically at risk: >/=60 mL/min Moderately decreased: 30-59 Severely decreased: 15-29 Renal failure: <15 Glomerular Filtration Rate (GFR) is estimated based on the MDRD equation, which assumes a steady state for creatinine as recommended by the National Kidney Disease Education Program in conjunction with the National Institutes of Health and the National Kidney Foundation. Clinical conditions in which it may be necessary to measure GFR by using clearance methods include extremes of age and body size, severe malnutrition or obesity, diseases of skeletal muscle, paraplegia or quadriplegia, vegetarian diet, rapidly changing kidney function, and calculation of the dose of potentially toxic drugs that are excreted by the kidneys. 51 Concerning GFR Guidelines for Americans: Normal function or mild renal disease, if clinically at risk: >/=60 mL/min Moderately decreased: 30-59 Severely decreased: 15-29 Renal failure: <15 52 Unable to perform accurate count due to platelet clumping 53 Concerning GFR Guidelines: Normal function or mild renal disease, if clinically at risk: >/=60 mL/min Moderately decreased: 30-59 Severely decreased: 15-29 Renal failure: <15 Glomerular Filtration Rate (GFR) is estimated based on the MDRD equation, which assumes a steady state for creatinine as recommended by the National Kidney Disease Education Program in conjunction with the National Institutes of Health and the National Kidney Foundation. Clinical conditions in which it may be necessary to measure GFR by using clearance methods include extremes of age and body size, severe malnutrition or obesity, diseases of skeletal muscle, paraplegia or quadriplegia, vegetarian diet, rapidly changing kidney function, and calculation of the dose of potentially toxic drugs that are excreted by the kidneys. 54 Concerning GFR Guidelines for Americans: Normal function or mild renal disease, if clinically at risk: >/=60 mL/min Moderately decreased: 30-59 Severely decreased: 15-29 Renal failure: <15 55 Platelets clumped but appear normal in number. 56 Per NCEP ATP III Guidelines: Results lower than 40 mg/dL are suggestive of increased risk for coronary artery disease. Results > or=to 60 mg/dL are considered a negative risk factor. 57 Per NCEP ATP III Guidelines: Normal Population <130 Patients with medical conditions: CHD/DM Optimal: <100 Borderline high: 130-159 High: 160-189 Very high: >189 58 Beginning 09/19/06 PSA values assayed at [facility] uses an EIA methodology manufactured by [employer] for use on the DXI analyzer. Values obtained with different assay methods or kits can not be used interchangeably. Serum PSA measurement is not an absolute test for malignancy. The PSA value should be used in conjunction with information available from clinical evaluation and other diagnostic procedures. 59 Is patient on anticoagulants? Coumadin Is patient on anticoagulants? None QUERY: Anticoagulant Therapy? QUERY: Date of Last Dose: QUERY: Time of Last Dose: 60 Note: Persistent reduction for 3 months or more in an eGFR <60 mL/min/ 1.73 m2 defines CKD. Patients with eGFR values >/=60 mL/min/1.73 m2 may also have CKD if evidence of persistent proteinuria is present. The original MDRD equation for estimated GFR is not valid for patients less than 18 years of age. Additional information may be found at www.kdoqi.org. 61 0.0 - 0.045 ng/mL: Normal 0.046 - 0.5 ng/mL: Suggestive 0.6 - 1.5 ng/mL: Consistent 62 THERAPEUTIC INR RANGE: 2.0 - 3.0 DVT, Pulmonary embolus, prophylaxis against venous thrombosis or systemic embolization in high risk patients. 2.5 - 3.5 Mechanical heart valves 63 Reference Guidelines*: Desirable: ........... < 200 mg/dL Borderline High: ..... 200-239 mg/dL High: ................ >=240 mg/dL * The National Cholesterol Education Program (NCEP) 64 Reference Guidelines*: Low HDL: ..... < 40 mg/dL Normal: ..... 40-60 mg/ dL Desirable: ... > 60 mg/dL *The National Cholesterol Education Program(NCEP ) 65 Reference Guidelines*: Optimal:........... <100 mg/dL Near Optimal....... 100-129 mg/dL Borderline High.... 130-159 mg/dL High............... 160-189 mg/dL Very High.......... >=190 mg/dL * Source: National Cholesterol Education Program (NCEP) 66 Reference Guidelines*: Normal: ............. < 150 mg/dL Borderline High : .... 150-199 mg/dL High: ............... 200-499 mg/dL Very High: .......... > 500 mg/dL * Source: National Cholesterol Education Program (NCEP) 67 Adult male reference interval is based on a population of lean males up to 40 years old. Performed at: [address] [id number] Infrastructure Analyst: Alma Rosa Edward MD, Phone: [phone] 68 Note: Persistent reduction for 3 months or more in an eGFR <60 mL/min/ 1.73 m2 defines CKD. Patients with eGFR values >/=60 mL/min/1.73 m2 may also have CKD if evidence of persistent proteinuria is present. The original MDRD equation for estimated GFR is not valid for patients less than 18 years of age. Additional information may be found at www.kdoqi.org. 69 THIS ASSAY IS NOT INTENDED A CANCER SCREENING TEST The concentration of PSA in a given specimen, determined with assays from different manufacturers, can vary due to differences in assay methods and reagent specificity. Values obtained from different assay methods cannot be used interchangeably. 70 Performed at: [address] [id number] Infrastructure Analyst: Alma Rosa Edward MD, Phone: [phone] 71 Performed at: [address] [id number] Infrastructure Analyst: Alma Rosa Edward MD, Phone: [phone] Performed at: [address] [id number] Infrastructure Analyst: Alessandro Krishnan MD, Phone: [phone] 72 THIS ASSAY IS NOT INTENDED A CANCER SCREENING TEST The concentration of PSA in a given specimen, determined with assays from different manufacturers, can vary due to differences in assay methods and reagent specificity. Values obtained from different assay methods cannot be used interchangeably. 73 A1c value between 5.7% and 6.4% is considered at increased risk for diabetes. A1c value greater than 6.5 % is considered essentially diagnostic for Type II diabetes. Current guidelines recommend a treatment goal of <7% for diabetic patients. This method will measure glycosylated hemoglobin variants, HbS, HbG , HbH, HbWayne, HbC, HbE, etc. Other hemoglobin- opathies may give incorrect results with this test. 74 Note: Persistent reduction for 3 months or more in an eGFR <60 mL/min/ 1.73 m2 defines CKD. Patients with eGFR values >/=60 mL/min/1.73 m2 may also have CKD if evidence of persistent proteinuria is present. The original MDRD equation for estimated GFR is not valid for patients less than 18 years of age. Additional information may be found at www.kdoqi.org. 75 Performed at: RN - [facility] [address] [id number] Infrastructure Analyst: Alma Rosa Edward MD, Phone: [phone] 76 Note: Persistent reduction for 3 months or more in an eGFR <60 mL/min/ 1.73 m2 defines CKD. Patients with eGFR values >/=60 mL/min/1.73 m2 may also have CKD if evidence of persistent proteinuria is present. The original MDRD equation for estimated GFR is not valid for patients less than 18 years of age. Additional information may be found at www.kdoqi.org. 77 Specimen slightly Hemolyzed, interpret with caution 78 Note: Persistent reduction for 3 months or more in an eGFR <60 mL/min/ 1.73 m2 defines CKD. Patients with eGFR values >/=60 mL/min/1.73 m2 may also have CKD if evidence of persistent proteinuria is present. The original MDRD equation for estimated GFR is not valid for patients less than 18 years of age. Additional information may be found at www.kdoqi.org. 79 THIS ASSAY IS NOT INTENDED A CANCER SCREENING TEST The concentration of PSA in a given specimen, determined with assays from different manufacturers, can vary due to differences in assay methods and reagent specificity. Values obtained from different assay methods cannot be used interchangeably. 80 Note: Persistent reduction for 3 months or more in an eGFR <60 mL/min/ 1.73 m2 defines CKD. Patients with eGFR values >/=60 mL/min/1.73 m2 may also have CKD if evidence of persistent proteinuria is present. The original MDRD equation for estimated GFR is not valid for patients less than 18 years of age. Additional information may be found at www.kdoqi.org. Procedures Date CPT Code Description Status Comment 10/13/2016 Colonoscopy Completed Document: 10/13/16 - Colonoscopy 05/26/2016 [id number] Admin Of Inj (Therapeutic Completed Phrophylactic Or Diagnostic Subq Inj 05/06/2016 [id number] Admin Of Inj (Therapeutic Completed Phrophylactic Or Diagnostic Subq Inj 04/22/2016 [id number] Admin Of Inj (Therapeutic Completed Phrophylactic Or Diagnostic Subq Inj 04/08/2016 [id number] Admin Of Inj (Therapeutic Completed Phrophylactic Or Diagnostic Subq Inj 03/25/2016 [id number] Admin Of Inj (Therapeutic Completed Phrophylactic Or Diagnostic Subq Inj 03/11/2016 [id number] Admin Of Inj (Therapeutic Completed Phrophylactic Or Diagnostic Subq Inj 02/26/2016 [id number] Admin Of Inj (Therapeutic Completed Phrophylactic Or Diagnostic Subq Inj 02/12/2016 [id number] Admin Of Inj (Therapeutic Completed Phrophylactic Or Diagnostic Subq Inj 01/29/2016 [id number] Admin Of Inj (Therapeutic Completed Phrophylactic Or Diagnostic Subq Inj 01/15/2016 [id number] Admin Of Inj (Therapeutic Completed Phrophylactic Or Diagnostic Subq Inj 01/01/2016 [id number] Admin Of Inj (Therapeutic Completed Phrophylactic Or Diagnostic Subq Inj 12/18/2015 [id number] Admin Of Inj (Therapeutic Completed Phrophylactic Or Diagnostic Subq Inj 12/04/2015 [id number] Admin Of Inj (Therapeutic Completed Phrophylactic Or Diagnostic Subq Inj 11/20/2015 [id number] Admin Of Inj (Therapeutic Completed Phrophylactic Or Diagnostic Subq Inj 11/06/2015 [id number] Admin Of Inj (Therapeutic Completed Phrophylactic Or Diagnostic Subq Inj 10/23/2015 [id number] Admin Of Inj (Therapeutic Completed Phrophylactic Or Diagnostic Subq Inj 10/09/2015 [id number] Admin Of Inj (Therapeutic Completed Phrophylactic Or Diagnostic Subq Inj 09/25/2015 [id number] Admin Of Inj (Therapeutic Completed Phrophylactic Or Diagnostic Subq Inj 09/11/2015 [id number] Admin Of Inj (Therapeutic Completed Phrophylactic Or Diagnostic Subq Inj 08/28/2015 [id number] Admin Of Inj (Therapeutic Completed Phrophylactic Or Diagnostic Subq Inj 08/14/2015 [id number] Admin Of Inj (Therapeutic Completed Phrophylactic Or Diagnostic Subq Inj 07/31/2015 [id number] Admin Of Inj (Therapeutic Completed Phrophylactic Or Diagnostic Subq Inj 07/17/2015 [id number] Echography Retroperitoneal Completed Complete 07/09/2015 [id number] Admin Of Inj (Therapeutic Completed Phrophylactic Or Diagnostic Subq Inj 06/25/2015 [id number] Admin Of Inj (Therapeutic Completed Phrophylactic Or Diagnostic Subq Inj 06/11/2015 [id number] Admin Of Inj (Therapeutic Completed Phrophylactic Or Diagnostic Subq Inj 05/28/2015 [id number] Admin Of Inj (Therapeutic Completed Phrophylactic Or Diagnostic Subq Inj 05/14/2015 [id number] Admin Of Inj (Therapeutic Completed Phrophylactic Or Diagnostic Subq Inj 04/30/2015 [id number] Admin Of Inj (Therapeutic Completed Phrophylactic Or Diagnostic Subq Inj 04/16/2015 [id number] Admin Of Inj (Therapeutic Completed Phrophylactic Or Diagnostic Subq Inj 03/27/2015 [id number] Admin Of Inj (Therapeutic Completed Phrophylactic Or Diagnostic Subq Inj 03/13/2015 [id number] Admin Of Inj (Therapeutic Completed Phrophylactic Or Diagnostic Subq Inj 02/27/2015 [id number] Admin Of Inj (Therapeutic Completed Phrophylactic Or Diagnostic Subq Inj 02/13/2015 [id number] Admin Of Inj (Therapeutic Completed Phrophylactic Or Diagnostic Subq Inj 01/30/2015 [id number] Admin Of Inj (Therapeutic Completed Phrophylactic Or Diagnostic Subq Inj 01/08/2015 [id number] Admin Of Inj (Therapeutic Completed Phrophylactic Or Diagnostic Subq Inj 12/25/2014 [id number] Admin Of Inj (Therapeutic Completed Phrophylactic Or Diagnostic Subq Inj 11/25/2014 [id number] Admin Of Inj (Therapeutic Completed Phrophylactic Or Diagnostic Subq Inj 11/06/2014 [id number] Admin Of Inj (Therapeutic Completed Phrophylactic Or Diagnostic Subq Inj 10/23/2014 [id number] Admin Of Inj (Therapeutic Completed Phrophylactic Or Diagnostic Subq Inj 10/09/2014 [id number] Admin Of Inj (Therapeutic Completed Phrophylactic Or Diagnostic Subq Inj 09/23/2014 [id number] Admin Of Inj (Therapeutic Completed Phrophylactic Or Diagnostic Subq Inj 09/05/2014 [id number] Admin Of Inj (Therapeutic Completed Phrophylactic Or Diagnostic Subq Inj 08/22/2014 [id number] Admin Of Inj (Therapeutic Completed Phrophylactic Or Diagnostic Subq Inj 08/08/2014 [id number] Admin Of Inj (Therapeutic Completed Phrophylactic Or Diagnostic Subq Inj 07/24/2014 [id number] Admin Of Inj (Therapeutic Completed Phrophylactic Or Diagnostic Subq Inj 07/09/2014 [id number] Admin Of Inj (Therapeutic Completed Phrophylactic Or Diagnostic Subq Inj 06/24/2014 [id number] Admin Of Inj (Therapeutic Completed Phrophylactic Or Diagnostic Subq Inj 05/23/2014 [id number] Admin Of Inj (Therapeutic Completed Phrophylactic Or Diagnostic Subq Inj 05/10/2014 [id number] Admin Of Inj (Therapeutic Completed Phrophylactic Or Diagnostic Subq Inj 04/25/2014 [id number] Admin Of Inj (Therapeutic Completed Phrophylactic Or Diagnostic Subq Inj 04/11/2014 [id number] Admin Of Inj (Therapeutic Completed Phrophylactic Or Diagnostic Subq Inj 03/28/2014 [id number] Admin Of Inj (Therapeutic Completed Phrophylactic Or Diagnostic Subq Inj 03/14/2014 [id number] Admin Of Inj (Therapeutic Completed Phrophylactic Or Diagnostic Subq Inj 02/28/2014 [id number] Admin Of Inj (Therapeutic Completed Phrophylactic Or Diagnostic Subq Inj 02/14/2014 [id number] Admin Of Inj (Therapeutic Completed Phrophylactic Or Diagnostic Subq Inj 01/30/2014 [id number] Admin Of Inj (Therapeutic Completed Phrophylactic Or Diagnostic Subq Inj 01/16/2014 [id number] Admin Of Inj (Therapeutic Completed Phrophylactic Or Diagnostic Subq Inj 01/02/2014 [id number] Admin Of Inj (Therapeutic Completed Phrophylactic Or Diagnostic Subq Inj 12/19/2013 [id number] Admin Of Inj (Therapeutic Completed Phrophylactic Or Diagnostic Subq Inj 12/10/2013 [id number] Screening Hearing Test Completed 12/10/2013 [id number] Visual Screening Test Completed 12/05/2013 [id number] Admin Of Inj (Therapeutic Completed Phrophylactic Or Diagnostic Subq Inj 11/21/2013 [id number] Admin Of Inj (Therapeutic Completed Phrophylactic Or Diagnostic Subq Inj 11/07/2013 [id number] Admin Of Inj (Therapeutic Completed Phrophylactic Or Diagnostic Subq Inj 11/07/2013 17030 Measure Blood Oxygen Level Completed Single Determination 10/24/2013 36753 Admin Of Inj (Therapeutic Completed Phrophylactic Or Diagnostic Subq Inj 10/09/2013 71643 Admin Of Inj (Therapeutic Completed Phrophylactic Or Diagnostic Subq Inj 09/25/2013 46369 Admin Of Inj (Therapeutic Completed Phrophylactic Or Diagnostic Subq Inj 09/11/2013 49571 Admin Of Inj (Therapeutic Completed Phrophylactic Or Diagnostic Subq Inj 08/28/2013 36384 Admin Of Inj (Therapeutic Completed Phrophylactic Or Diagnostic Subq Inj 08/14/2013 64626 Admin Of Inj (Therapeutic Completed Phrophylactic Or Diagnostic Subq Inj 07/30/2013 20796 Admin Of Inj (Therapeutic Completed Phrophylactic Or Diagnostic Subq Inj 07/16/2013 55632 Admin Of Inj (Therapeutic Completed Phrophylactic Or Diagnostic Subq Inj 07/05/2013 21895 Admin Of Inj (Therapeutic Completed Phrophylactic Or Diagnostic Subq Inj 04/30/2013 14520 Measure Blood Oxygen Level Completed Single Determination 11/29/2012 27861 Screening Hearing Test Completed 08/04/2012 Colonoscopy Completed colitis, polyp 12/27/2011 90777 Visual Screening Test Completed 12/27/2011 49268 Screening Hearing Test Completed Encounters Type Date Location Provider CPT E/M Dx Office Visit 01/03/2017 8:30a [facility] [place] [address] R73.01 E03.9 E78.2 N40.0 E29.1 K57.33 G47.00 E66.09 J30.9 I10 D48.5 Office Visit 07/05/2016 8:00a [facility] [place] [place] [address] E78.2 E29.1 N40.0 E03.9 K57.33 F32.9 G47.00 E66.09 J30.9 R73.01 Office Visit 12/26/2015 8:00a [facility] [place] [place] [address] E29.1 E78.2 R06.02 L72.3 K57.33 F32.9 G47.00 N40.0 E66.09 Office Visit 06/18/2015 1:00p [facility] [place] [place] [address] N28.9 K62.5 K57.33 E29.1 E78.2 I10 F32.9 G47.00 N40.0 Office Visit 06/12/2015 3:15p [facility] [place] [address] R10.32 K62.5 Office Visit 12/09/2014 1:00p [facility] [place] [address] 272.2 311 401.1 257.2 782.3 780.52 288.60 Office Visit 10/16/2014 8:30a [facility] [place] [id number] Plan of Care Future Appointment(s):12/28/2017 7:55 am - Schedule, Laboratory at [facility]2017 8:00 am - David Eduardo DO at [facility]07/06/2017 - David Eduardo DOR73.01 Impaired fasting glucoseNew Labs:Hemoglobin A1cE03.9 Hypothyroidism, unspecifiedNew Labs:TSHE78.2 Mixed hyperlipidemiaNew Labs:CBC With Auto DiffBasic (BMP)Lipid TreatmentFollow up:Get fasting lab work done in 6 months, then see me a few days later.N40.0 Benign prostatic hyperplasia without lower urinry tract sympNew Labs:PSAE29.1 Testicular hypofunctionNew Labs:Testosterone, Total-MaleK57.33 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
[2017-07-21 09:22] VITALS: BP 147/82
--- NOTE | 2017-07-21 10:37 | UC ---
FLU HPI - HPI Summary HPI Summary: 61 year old male with cough. c/o temp- 103, productive cough- unknown secretions , chills, sweating, and hard time getting air in. Lungs are sore. Concerned for pneumonia. Symptoms started yesterday. Feels very fatigued. [ End ] - History of Current Complaint Chief Complaint: UCRespiratory Stated Complaint: BODY ACHES/CHEST TYRESE/HEAVY BREATHING Time Seen by Provider: 07/21/17 10:13 Hx Obtained From: Patient Onset/Duration: Sudden Onset Severity Currently: Severe Severity Initially: Severe Associated Signs & Symptoms: Positive: Fever, Myalgia, Cough, Sore Throat, Nasal Congestion, Headache - Allergy/Home Medications Allergies/Adverse Reactions: Allergies Allergy/AdvReac Type Severity Reaction Status Date / Time No Known Allergies Allergy Verified 07/21/17 09:13 Home Medications: Home Medications Ibuprofen [Ibuprofen 200 MG] 400 mg PO Q4H PRN 07/21/17 [History Confirmed 07/21] Lisinopril [Zestril 10 MG-] 10 mg PO DAILY 07/21/17 [History Confirmed 07/21/17] traZODone TAB* [Desyrel TAB*] 150 mg PO BEDTIME 07/21/17 [History Confirmed ] PMH/Surg Hx/FS Hx/Imm Hx Previously Healthy: Yes Cardiovascular History: Hypertension - Surgical History Surgical History: Yes Surgery Procedure, Year, and Place: spleenectomy. Tonsils. 5 ACL. appy. 7 hernia's - Family History Known Family History: Positive: None - Social History Occupation: Employed Full-time Lives: With Family Alcohol Use: Occasionally Substance Use Type: None Smoking Status (MU): Former Smoker - Immunization History Most Recent Influenza Vaccination: not this season Review of Systems Constitutional: Fever, Chills, Fatigue ENT: Sinus Congestion Respiratory: Cough Musculoskeletal: Myalgia Neurological: Headache Is Patient Immunocompromised?: No All Other Systems Reviewed And Are Negative: Yes Physical Exam Triage Information Reviewed: Yes Appearance: Well-Appearing, No Pain Distress, Well-Nourished Vital Signs: Initial Vital Signs Temp 99.7 F 07/21/17 09:15 Pulse 88 07/21/17 09:15 Resp 20 07/21/17 09:15 BP 147/82 07/21/17 09:15 Pulse Ox 94 07/21/17 09:15 Vital Signs Reviewed: Yes Eye Exam: Normal ENT Exam: Normal Dental Exam: Normal Neck exam: Normal Neck: Positive: 1 Respiratory Exam: Normal Respiratory: Positive: Chest non-tender, Decreased breath sounds - Right sided, Crackles - RLL, Wheezing - expiratory Right sided Cardiovascular Exam: Normal Abdominal Exam: Normal Musculoskeletal Exam: Normal Neurological Exam: Normal Psychological Exam: Normal Skin Exam: Normal Diagnostics - Laboratory Diagnostic Studies Completed/Ordered: xray NAD Flu Course/Dx - Course Course Of Treatment: supportive treatment. - Differential Dx/Diagnosis Differential Diagnosis/HQI/PQRI: Bronchitis, Influenza, Pneumonia, RSV, Upper Respiratory Infection Provider Diagnoses: Viral Pneumonia Discharge - Discharge Plan Condition: Good Disposition: HOME Patient Education Materials: Pneumonia (ED) Forms: *Work Release Referrals: David Eduardo DO [Primary Care Provider] - 4 Days Additional Instructions: Your xray was negative for acute concerns. We believe you have a viral pneumonia and advise rest and hydration.
--- NOTE | 2017-07-21 10:38 | RAD ---
INDICATION: Cough, shortness of breath. Body aches. COMPARISON: August 29, [address] TECHNIQUE: Dual energy PA and routine lateral views of the chest were obtained. REPORT: Clear lungs and pleural spaces. Negative for pneumothorax. The heart, pulmonary vasculature, and mediastinal contours are unremarkable. Unremarkable osseous structures and soft tissue contours for age. IMPRESSION: No evidence for pneumonia. Negative exam.
== END 2017-07-21 11:06 | disposition home or self-care (01) ==
LOC: UCCORT 08:54
DX: J12.9 Viral pneumonia, unspecified (principal); I10 Essential (primary) hypertension; Z87.891 Personal history of nicotine dependence
CPT/HCPCS: 71020; 87502; 99201; G0463

== ENCOUNTER 2018-02-27 10:48 | Emergency (ER) | payer BC, OTHER ==
[2018-02-27 11:17] VITALS: BP 136/76
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
[2018-02-27] MEDS ORDERED: Tetan/Diph/Pertus SYR(Tdap)* 0.5 ML SYR(BOOSTRIX) use SYR IM ONE (11:51)
== END 2018-02-27 12:05 | disposition home or self-care (01) ==
LOC: UCCORT 10:48
DX: F17.210 Nicotine dependence, cigarettes, uncomplicated (principal); S01.01XA Laceration without foreign body of scalp, initial encounter; W22.8XXA Striking against or struck by other objects, initial encounter; Y93.H2 Activity, gardening and landscaping; Y92.9 Unspecified place or not applicable
CPT/HCPCS: 12001; 90471; 90715; 99211; G0463

== ENCOUNTER 2018-03-26 19:36 | Emergency (ER) | payer BC, OTHER ==
--- OUTSIDE RECORDS SUMMARY | 2018-03-26 19:54 | XMS REPORT ---
:1955 External Reference #:[id number] Author Organization [facility] Address [address] [address] Phone [phone] Care Team Providers Name Role Phone David Eduardo DO Care Team Information Personnel Administrator Unavailable Payers Type Date Identification Numbers Payment Provider Subscriber Health Maintenance Effective: Policy Number: [facility] Jose Laurent Organization ([facility]) 11/22/2012 [id number] Plan Group Number: [id number] [address] Group Name: [place] [address] PayID: [id number] Workers Compensation Onset: 03/01/2018 Policy Number: [facility] Jose Laurent [id number] Insurance Fund [place]: [id number] [address] [address] [place] [address] Medigap Part B Expires: 12/23/2013 Policy Number: 0 [employer] Jose Laurent [facility] [place] [address] Problems Date Description Provider Status Onset: 11/07/2013 [...] Date Description Comments Marital Status Occupation Moving [employer] Cigarette Use Former Cigarette Smoker ETOH Use Has consumed alcohol in the past Recreational Drug Use Denies Drug Use Daily Caffeine Consumes on average 4 cups of coffee per day Allergies, Adverse Reactions, Alerts Date Description Reaction Status Severity Comments 08/08/2014 NKDA active 11/29/2012 Seasonal active Medications Medication Date Status Form Strength Qnty SIG Indications Ordering Provider Proair HFA 02/01 Active Aerosol 108(90Bas 8.5un inhale two Eduardo e) its puffs by David mcg/Act mouth every DO 4 hours as needed Trazodone HCL 07/26 Active Tablets 150mg 90tab Take 1 Eduardo, s Tablet By David Mouth AT DO Bedtime as Needed- Cancel 100 MG Script Already Sent Viagra 07/06 Active Tablets 100mg 6tabs / to 1 by Jayce, mouth every David, day as DO needed Hydrochlorothiazid 07/06 Active Tablets 25mg 90tab 1 By Mouth Jayce, e s Every Day DO David Cetirizine HCL 07/05 Active Tablets 10mg 90tab 1 PO QHS J30.9 Eduardo, s DO David 3ML Syringe/22G X 05/26 Active Misc 22G X 1" 90uni Use as E29.1 Eduardo, 1"/Luer Lock Tip 3 ML ts Directed DO David Clotrimazole/Betam 01/03 Active Cream 1-0.05% 45gm apply Jayce ethasone topically David Dipropionate to affected DO area 2 times a day as needed Lisinopril 12/25 Active Tablets 40mg 90tab 1 By Mouth Eduardo, s Every Day DO David Zetia 12/09 Active Tablets 10mg 30tab 1 By Mouth E78.2 Eduardo, s Every Day DO David Testosterone 07/04 Active Solution 200mg/ml 6ml inject 1 Jayce Cypionate milliliters David, every 2 DO weeks im. code f. please do not fill till 02/20/18 Ventolin HFA 02/01 Hx Aerosol 108(90Bas 18uni 2 puffs , e) ts every 4 David, - mcg/Act hours as DO 02/01 needed Trazodone HCL 10/08 Hx Tablets 100mg 30tab Take 1/2 To Eduardo, s 1 Tablet By David, - Mouth AT DO 07/26 Bedtime as Needed Insomnia Clotrimazole/Betam 01/03 Hx Cream 45uni apply twice Eduardo, ethasone ts a day to David Dipropionate - the r foot DO 01/03 for the next 2 weeks Escitalopram 10/16 Hx Tablets 10mg 30tab 1 By Mouth F32.9 Eduardo, s Every Day David, - DO 07/05 Clotrimazole/Betam 03/07 Hx Cream [...] Hx Tablets 100mg 30tab take 1 Eduardo, /2013 s tablet po David, - qhs DO 12/09 Lisinopril 12/28 Hx Tablets 20mg 90tab 1 by mouth Eduardo, s every day David, - DO 12/25 Aleve PM 00 Hx Tablets 220-25mg Unknown /0000 - 10/08 Immunizations CPT Code Status Date Vaccine Lot # [id number] Given 02/27/2018 Tdap (Adacel) Ages 7 And Above Only Vital Signs Date Vital Result Comment 03/09/2018 Weight 226.00 lb Heart Rate 80 /min BP Systolic 144 mmHg BP Diastolic 86 mmHg Respiratory Rate 18 /min 01/04/2018 Weight 227.00 lb Heart Rate 67 /min BP Systolic 136 mmHg BP Diastolic 76 mmHg Respiratory Rate 14 /min 07/06/2017 Weight 236.00 lb Heart Rate 72 [...] Test Date Test Result H/L Range Note Laboratory test finding 12/28/2017 Total Testosterone Adult 471 ng/dL 285 -650 1 Male PSA 1.360 ng/mL 0.000-4.000 1, 2 Hemoglobin A1c 12/28/2017 Hemoglobin A1c 6.2 % High 4.1-5.9 1 Estimated Average Glucose Calc 131 mg/dL 71-140 1 Laboratory test finding 12/28/2017 TSH 1.97 uIU/mL 0.35-4.94 1 CBC With Auto Diff 12/28/2017 WBC 11.9 K/uL High 4.1-11.0 1 RBC 4.92 M/uL 4.60-6.10 1 Hemoglobin 15.7 gm/dL 13.5-18.0 1 Hematocrit 46.5 % 41.0-53.0 1 MCV 94.6 fL 80.0-97.0 1 MCH 32.0 pg 27.0-32.0 1 MCHC 33.8 g/dL 32.0-36.0 1 RDW 13.6 % 11.5-14.5 1 PLT Count SEE NOTE K/ul 140-400 1, 3 MPV SEE NOTE FL 7.1-10.7 1, 4 Basic (BMP) 12/28/2017 Sodium 138 mmol/L 135-146 1, 5 Potassium 5.1 mmol/L 3.5-5.2 1 Chloride# 98 mmol/L 97-110 1, 6 Carbon Dioxide 32 mmol/L 24-34 1 Glucose 120 mg/dL High 70-105 1 BUN 14 mg/dL 6-26 1 Creatinine 1.1 mg/dL 0.5-1.4 1 Calcium 9.9 mg/dL 8.5-10.2 1 Non Aleksandra Egfr >60 >60 1, 7 Aleksandra Egfr >60 >60 1, 8 Anion Gap 8 mmol/L 5-15 1, 9 Lipid Treatment 12/28/2017 Cholesterol 211 mg/dL High 50-199 1 Triglycerides 123 mg/dL 30-200 1 HDL 39 mg/dL 29-71 1, 10 Chol/ HDL Ratio 5.4 ratio 4.0-6.7 1 VLDL 25 mg/dL 2-29 1 LDL (Calc) 147 mg/dL High 20-99 1, 11 Alt 27 U/L 3-42 1 Ast 24 U/L 8-42 1 Hemoglobin A1c 07/01/2017 Hemoglobin A1c 6.1 % High 4.1-5.9 12 Estimated Average Glucose Calc 128 71-140 12 Laboratory test finding 07/01/2017 TSH 1.71 uIU/mL 0.35-4.94 12 Lipid Treatment 07/01/2017 Cholesterol 197 mg/dL 50-199 12 Triglycerides 93 mg/dL 30-200 12 HDL 41 mg/dL 29-71 12, 13 Chol/ HDL Ratio 4.8 ratio 4.0-6.7 12 VLDL 19 mg/dL 2-29 12 LDL (Calc) 137 mg/dL High 20-99 12, 14 Alt 37 U/L 3-42 12 Ast 25 U/L 8-42 12 Laboratory test finding 07/01/2017 PSA 1.030 ng/mL 0.000-4.000 12, 15 Total Testosterone Adult Male 828 ng/dL 12 CBC With Auto Diff 07/01/2017 WBC 11.0 K/uL 4.1-11.0 12 RBC 4.87 M/uL 4.60-6.10 12 Hemoglobin 15.5 gm/dL 13.5-18.0 12 Hematocrit 47.1 % 41.0-53.0 12 MCV 96.6 fL 80.0-97.0 12 MCH 31.8 pg 27.0-32.0 12 MCHC 32.9 g/dL 32.0-36.0 12 RDW 14.2 % 11.5-14.5 12 PLT Count Unable to report <SEE NOTE> K/ul 140-400 12, 16 MPV Unable to report <SEE NOTE> FL 7.1-10.7 12, 17 Neutrophil 53.9 % 35.0-75.0 12, 18 Lymphocyte 30.2 % 16.0-52.0 12, 19 Monocyte 12.5 % High 2.0-10.0 12, 20 Eosinophil 2.4 % 0.0-5.0 12, 21 Basophil 1.0 % 0.0-4.0 12, 22 Abs Neutrophils 5.9 K/uL 2.1-8.0 12, 23 Abs Lymphocytes 3.3 K/uL 0.8-5.5 12, 24 Abs Monocytes 1.4 K/uL High 0.1-1.0 12, 25 Abs Eosinophils 0.3 K/uL 0.0-0.5 12, 26 Abs Basophils 0.1 K/uL 0.0-0.3 12, 27 Basic (BMP) 07/01/2017 Sodium 140 mmol/L 135-146 12, 28 Potassium 4.8 mmol/L 3.5-5.2 12 Chloride# 100 mmol/L 97-110 12, 29 Carbon Dioxide 31 mmol/L 24-34 12 Glucose 113 mg/dL High 70-105 12 Creatinine 1.1 mg/dL 0.5-1.4 12 Calcium 9.2 mg/dL 8.5-10.2 12 Non Aleksandra Egfr >60 >60 12, 30 Aleksandra Egfr >60 >60 12, 31 Anion Gap 9 mmol/L 7-16 12, 32 BUN 11 mg/dL 6-26 12 Hemoglobin A1c 12/27/2016 Hemoglobin A1c 6.1 % High 4.1-5.9 Estimated Average Glucose Calc 128 71-140 Testosterone,Free & Total-Male 12/27/2016 Testosterone Total Adult 463 ng/ dL Male Sex Hormone Binding Globulin 18.5 nmol/L 13.3-89.5 Testosterone Free Adult Male 128 pg/mL 50-247 Testosterone Percent Free 2.8 % 1.8-3.2 Laboratory test finding 12/27/2016 PSA 0.820 ng/mL 0.000-4.000 33 CBC With Auto Diff 12/27/2016 WBC 7.7 K/uL 4.1-11.0 RBC 4.99 M/uL 4.60-6.10 Hemoglobin 15.6 gm/dL 13.5-18.0 Hematocrit 47.3 % 41.0-53.0 MCV 94.7 fL 80.0-97.0 MCH 31.2 pg 27.0-32.0 MCHC 33.0 g/dL 32.0-36.0 RDW 13.7 % 11.5-14.5 PLT Count Platelets clumpe <SEE NOTE> K/ul 140-400 34 Neutrophil 53.3 % 35.0-75.0 Lymphocyte 30.4 % 16.0-52.0 Monocyte 12.7 % High 2.0-10.0 Eosinophil 2.8 % 0.0-5.0 Basophil 0.8 % 0.0-4.0 Abs Neutrophils 4.1 K/uL 2.1-8.0 Abs Lymphocytes 2.3 K/uL 0.8-5.5 Abs Monocytes 1.0 K/uL 0.1-1.0 Abs Eosinophils 0.2 K/uL 0.0-0.5 Abs Basophils 0.1 K/uL 0.0-0.3 Basic (BMP) 12/27/2016 Sodium 139 mmol/L 135-146 35 Potassium 4.6 mmol/L 3.5-5.2 Chloride# 103 mmol/L 97-110 36 Carbon Dioxide 27 mmol/L 24-34 Glucose 120 mg/dL High 70-105 BUN 13 mg/dL 6-26 Creatinine 1.2 mg/dL 0.5-1.4 Calcium 9.5 mg/dL 8.5-10.2 Non Aleksandra Egfr >60 >60 37 Aleksandra Egfr >60 >60 38 Anion Gap 14 mmol/L 7-16 39 Lipid Treatment 12/27/2016 Cholesterol 181 mg/dL 50-199 Triglycerides 97 mg/dL 30-200 HDL 35 mg/dL 29- 40 Chol/ HDL Ratio 5.2 ratio 4.0-6.7 VLDL 19 mg/dL 2-29 LDL (Calc) 127 mg/dL High 20-99 41 Alt 34 U/L 3-42 Ast 22 U/L 8-42 Laboratory test 12/27/2016 TSH 1.45 uIU/mL 0.35-4.94 finding Laboratory test 12/03/2016 H. Pylori Stool Negative Negative 42, 43 finding Antigen Lipid Treatment 06/28/2016 Cholesterol 239 mg/dL High 50-199 Triglycerides 118 mg/dL 30-200 HDL 42 mg/dL 29- 44 Chol/ HDL Ratio 5.7 ratio 4.0-6.7 VLDL 24 mg/dL 2-29 LDL (Calc) 173 mg/dL High 20-99 45 Alt 39 U/L 3-42 Ast 29 U/L [...] Count Platelets clumpe <SEE NOTE> K/ul 140-400 46 Basic (BMP) 06/28/2016 Sodium 138 mmol/L 134-142 Potassium 4.7 mmol/L 3.5-5.2 Chloride 100 mmol/L 97-109 Carbon Dioxide 32 mmol/L 24-34 Glucose 117 mg/dL High 70-105 BUN 11 mg/dL 6-26 Creatinine 1.0 mg/dL 0.5-1.4 Calcium 9.2 mg/dL 8.5-10.2 Anion Gap 11 mmol/L 6-14 Non Aleksandra Egfr >60 >60 47 Aleksandra Egfr >60 >60 48 Laboratory test finding 06/28/2016 PSA 1.200 ng/mL 0.000-4.000 49 Manual Differential 06/28/2016 Neutrophils 55 % 35-75 Lymphocytes 31 % 16-52 Atypical Lymphs 1 0-5 Monocytes 11 % High 0-8 Eosinophils 2 % 0-5 Basophils 0 % 0-4 Platelet Estimate Unable to perfor <SEE NOTE> Normal 50 RBC Morphology Normal Normal Abs Neutrophils# 6.6 K/ul 1.8-7.7 Abs Lymphocytes# 3.7 K/ul 1.2-4.8 Abs Monocytes# 1.3 K/ul High 0.0-0.8 Abs Eosinophils# 0.2 K/ul 0.0-0.5 Abs Basophils# 0.0 K/ul 0.0-0.3 Abs Atypical Lymphocytes# 0.1 K/ul 0.0-0.5 Laboratory test finding 12/19/2015 Total Testosterone Adult 1011 ng/dL High 285-950 51 Male PSA 1.120 ng/mL 0.000-4.000 51, 52 Lipid Treatment 12/19/2015 Cholesterol 230 mg/dL High 50-199 51 Triglycerides 131 mg/dL 30-200 51 HDL 43 mg/dL 29-71 51, 53 Chol/ HDL Ratio 5.3 ratio 4.0-6.7 51 VLDL 26 mg/dL 2-29 51 LDL (Calc) 161 mg/dL High 20-99 51, 54 Alt 31 U/L 3-42 51 Ast 24 U/L 8-42 51 CBC With Auto Diff 12/19/2015 WBC 9.5 K/uL 4.1-11.0 51 RBC 5.10 M/uL 4.60-6.10 51 Hemoglobin 16.2 gm/dL 13.5-18.0 51 Hematocrit 48.0 % 41.0-53.0 51 MCV 94.1 fL 80.0-97.0 51 MCH 31.9 pg 27.0-32.0 51 MCHC 33.9 g/dL 32.0-36.0 51 RDW 13.5 % 11.5-14.5 51 PLT Count Platelets clumpe <SEE NOTE> K/ul 140-400 51, 55 Neutrophil 47.3 % 35.0-75.0 51 Lymphocyte 32.3 % 16.0-52.0 51 Monocyte 12.8 % High 2.0-10.0 51 Eosinophil 6.5 % High 0.0-5.0 51 Basophil 1.1 % 0.0-4.0 51 Abs Neutrophils 4.5 K/uL 2.1-8.0 51 Abs Lymphocytes 3.0 K/uL 0.8-5.5 51 Abs Monocytes 1.2 K/uL High 0.1-1.0 51 Abs Eosinophils 0.6 K/uL High 0.0-0.5 51 Abs Basophils 0.1 K/uL 0.0-0.3 51 Basic (BMP) 12/19/2015 Sodium 137 mmol/L 134-142 51 Potassium 4.9 mmol/L 3.5-5.2 51 Chloride 103 mmol/L 97-109 51 Carbon Dioxide 27 mmol/L 24-34 51 Glucose 112 mg/dL High 70-105 51 BUN 11 mg/dL 6-26 51 Creatinine 1.0 mg/dL 0.5-1.4 51 Calcium 9.4 mg/dL 8.5-10.2 51 Anion Gap 12 mmol/L 6-14 51 Non Aleksandra Egfr >60 >60 51, 56 Aleksandra Egfr >60 >60 51, 57 Laboratory test finding 12/19/2015 TSH 1.87 uIU/mL 0.35-4.94 51 Lipid Treatment 06/04/2015 Cholesterol 218 mg/dL High 50-199 Triglycerides 150 mg/dL 30-200 HDL 35 mg/dL 29-71 58 Chol/ HDL Ratio 6.2 ratio 4.0-6.7 VLDL 30 mg/dL High 2-29 LDL (Calc) 153 mg/dL High 20-99 59 Alt 34 U/L 3-42 Ast 23 U/L 8-42 CBC With Auto Diff 06/04/2015 WBC 8.9 K/uL 4.1-11.0 RBC 5.16 M/uL 4.60-6.10 Hemoglobin 16.2 gm/dL 13.5-18.0 Hematocrit 49.0 % 41.0-53.0 MCV 95.0 fL 80.0-97.0 MCH 31.5 pg 27.0-32.0 MCHC 33.1 g/dL 32.0-36.0 RDW 13.2 % 11.5-14.5 PLT Count Platelets clumpe <SEE NOTE> K/ul 140-400 60 Basic ([facility]) 06/04/2015 Sodium 134 mmol/L 134-142 Potassium 4.9 mmol/L 3.5-5.2 Chloride 101 mmol/L 97-109 Carbon Dioxide 28 mmol/L 24-34 Glucose 99 mg/dL 70-105 BUN 12 mg/dL 6-26 Creatinine 0.8 mg/dL 0.5-1.4 Calcium 9.1 mg/dL 8.5-10.2 Anion Gap 10 mmol/L 01-05 Non Aleksandra Egfr >60 >60 61 Aleksandra Egfr >60 >60 62 Laboratory test finding 06/04/2015 Total Testosterone Adult 664 ng/dL 285 -950 Male TSH 1.24 uIU/mL 0.35-4.94 Manual Differential 06/04/2015 Neutrophils 62 % 35-75 Lymphocytes 27 % 16-52 Monocytes 10 % High 0-8 Eosinophils 1 % 0-5 Basophils 0 % 0-4 Platelet Estimate Unable to perfor <SEE NOTE> Normal 63 RBC Morphology Normal Normal Abs Neutrophils# 5.5 K/ul 1.8-7.7 Abs Lymphocytes# 2.4 K/ul 1.2-4.8 Abs Monocytes# 0.9 K/ul High 0.0-0.8 Abs Eosinophils# 0.1 K/ul 0.0-0.5 Abs Basophils# 0.0 K/ul 0.0-0.3 Basic ([facility]) 12/04/2014 Sodium 139 mmol/L 134-142 Potassium 4.9 mmol/L 3.5-5.2 Chloride 104 mmol/L 97-109 Carbon Dioxide 28 mmol/L 24-34 Glucose 106 mg/dL High 70-105 BUN 16 mg/dL 6-26 Creatinine 0.9 mg/dL 0.5-1.4 Calcium 9.4 mg/dL 8.5-10.2 Anion Gap 12 mmol/L 01-05 Non Aleksandra Egfr >60 >60 64 Aleksandra Egfr >60 >60 65 CBC With Auto Diff 12/04/2014 WBC 11.2 K/uL High 4.1-11.0 RBC 5.10 M/uL 4.60-6.10 Hemoglobin 16.0 gm/dL 13.5-18.0 Hematocrit 48.0 % 41.0-53.0 MCV 94.0 fL 80.0-97.0 MCH 31.3 pg 27.0-32.0 MCHC 33.3 g/dL 32.0-36.0 RDW 13.7 % 11.5-14.5 PLT Count Platelets clumpe <SEE NOTE> K/ul 140-400 66 Neutrophil 44.2 % 35.0-75.0 Lymphocyte 40.6 % 16.0-52.0 Monocyte 10.9 % High 2.0-10.0 Eosinophil 3.5 % 0.0-5.0 Basophil 0.8 % 0.0-4.0 Abs Neutrophils 4.9 K/uL 2.1-8.0 Abs Lymphocytes 4.5 K/uL 0.8-5.5 Abmon 1.2 K/uL High 0.1-1.0 Abs Eosinophils 0.4 K/uL 0.0-0.5 Abs Basophils 0.1 K/uL 0.0-0.3 Lipid Treatment 12/04/2014 Cholesterol 250 mg/dL High 50-199 Triglycerides 205 mg/dL High 30-200 HDL 32 mg/dL 29-71 67 Chol/ HDL Ratio 7.8 ratio High 4.0-6.7 VLDL 41 mg/dL High 2-29 LDL (Calc) 177 mg/dL High 20-99 68 Alt 30 U/L 3-42 Ast 22 U/L 8-42 Laboratory test finding 12/04/2014 TSH 2.28 uIU/mL 0.35-4.94 Testosterone,Free & 12/04/2014 Testosterone Total Adult 519 ng/dL 285- 950 Total-Male Male Sex Hormone Binding Globulin 23.2 nmol/L 13.3-89.5 Testosterone Free Adult Male 132 pg/mL 50-247 Testosterone Percent Free 2.6 % 1.8-3.2 Laboratory test finding 12/04/2014 PSA 1.290 ng/mL 0.000-4.000 69 Urine Screen 07/11/2014 Urine Bilirubin - Negative Negative Dipstick Urine Blood Negative Negative Urine Clarity Clear Clear Urine Color Yellow Yellow Urine Glucose - Dipstick Negative mg/dL Negative Urine Ketone Negative mg/dL Negative Urine Leuk Esterase Negative Negative Urine Nitrite - Dipstick Negative Negative Urine PH 7.0 6.5-7.5 Urine Protein - Dipstick Negative mg/dL Negative Urine Specific [place] 1.010 1.010-1.030 Urine Urobilinogen - Dipstick 0.2 E.U./dL 0.2-1.0 Laboratory test finding 07/10/2014 Act Partial Thrombo Time 38.7 s High 23.9-34.3 70 Anion Gap 9 mEq/L 8-16 BUN 10 mg/dL 7-18 BUN/Creat 9.0 ratio CK 160 U/L 39-308 Calcium 9.3 mg/dL 8.5-10.1 Carbon Dioxide 30 mmol/L 21-32 Chloride 105 mmol/L 98-107 Creatinine 1.1 mg/dL 0.6-1.3 Glom Filtration Rate, Estimate >60 mL/min >60 Glucose 106 mg/dL 74-106 If >60 mL/min >60 71 Potassium 4.4 mmol/L 3.5-5.1 Sodium 140 mmol/L 136-145 Troponin-I < 0.02 ng/mL 72 CBS W/Automated Diff 07/10/2014 Bas% 0.3 % [...] Mean Platelet Volume 10.8 fL High 6.6-10.6 Teller # 1.28 K/uL High 0.0-0.6 Teller % 14.0 % High 0.0-10.0 Neut# 4.15 K/uL 1.8-7.0 Neut% 45.3 % 33.0-73.0 Platelet Count 363 K/uL 150-400 Red Blood Count 4.89 M/uL 4.20-5.80 Red Cell Distri Width %CV 13.0 % 11.6-15.8 Red Cell Distri Width SD 43.6 fl 36-51 White Blood Count 9.2 K/uL 3.4-10.5 Protime 07/10/2014 Inr 0.9 0.9-1.1 73 Protime 12.1 s 12.1-14.9 LDL Cholesterol Profile 05/03/2014 Cholesterol 234 mg/dL 74 HDL Cholesterol 36 mg/dL 75 LDL-Cholesterol 173 mg/dL 76 Triglycerides 124 mg/dL 77 Laboratory test finding 05/03/2014 Comment See Note . 78 SGPT/Alt 44 U/L 12-78 Sgot/Ast 25 U/L [...] 93 mg/dL 76-115 If >60 mL/min >60 79 NT-proBNP 8.0 pg/mL <325.0 Potassium 3.7 mmol/L 3.5-5.1 Prostate Specific Antigen 0.76 ng/mL 0.00-4.00 80 SGPT/Alt 59 U/L 30-65 Sgot/Ast 24 U/L 16-40 Sodium 140 mmol/L 136-145 Testosterone,Serum 768 ng/dL 348-1197 81 Total Protein 7.1 g/dL 6.3-8.0 Testosterone,Free/Weakly 07/27/2013 Testosterone,%Free/Weakly 27.4 % 9.0- 46.0 Bound BND Testosterone,Free+Weakly Bound 155.6 ng/dL 40.0-250.0 82 Testosterone,Serum 568 ng/dL 348-1197 LDL Cholesterol Profile 07/27/2013 Cholesterol 273 mg/dL High 120-200 HDL Cholesterol 41 mg/dL 29-83 LDL-Cholesterol 210 mg/dL High 62-185 Triglycerides 109 mg/dL 16-231 Laboratory test finding 07/27/2013 Prostate Specific 1.91 ng/mL 0.00- 4.00 83 Antigen SGPT/Alt 40 U/L 30-65 Sgot/Ast 22 [...] High 76-115 Glycohemoglobin (A1c) 5.8 % 4.8-6.0 84 If >60 mL/min >60 85 Potassium 4.6 mmol/L 3.5-5.1 SGPT/Alt 46 U/L 30-65 Sgot/Ast 24 U/L 16-40 Sodium 141 mmol/L 136-145 Testosterone,Serum 472 ng/dL 348-1197 86 Total Protein 6.1 g/dL Low 6.3-8.0 eAG [...] 104 mg/dL 76-115 If >60 mL/min >60 87 Lipase 160 U/L 28-380 88 Lymph% 13 % Low 17-56 Monocyte% 12 [...] - Dipstick Negative mg/dL Negative Urine Specific [place] <=1.005 Low 1.010-1.030 Urine Urobilinogen - Dipstick 0.2 E.U./dL 0.2-1.0 Laboratory test finding 02/12/2013 Anion Gap 12 mEq/L 8-16 BUN 20 mg/dL 5-23 BUN/Creat 16.6 ratio Calcium 9.3 mg/dL 8.5-10.1 Carbon Dioxide 29 mEq/L 18-29 Chloride 102 mmol/L 98-107 Creatinine 1.2 mg/dL 0.5-1.4 Glom Filtration Rate, Estimate >60 mL/min >60 Glucose 82 mg/dL 76-115 If >60 mL/min >60 89 Potassium 4.1 mmol/L 3.5-5.1 Prostate-Specific Antigen 0.94 ng/mL 0.0-4.0 90 Sodium 139 mmol/L 136-145 Laboratory test finding [...] 14.3 gm/dL 12.8-17.0 If >60 mL/min >60 91 Lymph # 2.28 K/uL 1.2-4.0 Lymph % 33.7 % 17.0-56.0 Mean Cell Volume 92.8 fl 80.0-96.0 Mean Corpuscular HGB 31.2 pg 27.0-33.0 Mean Corpuscular HGB Conc 33.6 g/dL 31.7-36.0 Mean Platelet Volume 12.6 fL High 6.6-10.6 Teller # 0.99 K/uL High 0.0-0.6 Teller % 14.6 % High 0.0-10.0 Neut# 3.13 [...] mg/dL 62-185 Triglycerides 73 mg/dL 16-231 1 DO NOT RELEASE PLT COUNT BEFORE A SCAN IS DONE DO NOT RELEASE PLT COUNT BEFORE A SCAN IS DONE 2 Beginning 09/19/06 PSA values assayed at [facility] uses chemiluminescence methodology manufactured by [employer] for use on the DXI analyzer. Values obtained with different assay methods or kits can not be used interchangeably. Serum PSA measurement is not an absolute test for malignancy. The PSA value should be used in conjunction with information available from clinical evaluation and other diagnostic procedures. 3 Platelets Appear Slight Decreased Platelet Clumps Present 4 Platelets Appear Slight Decreased Platelet Clumps Present 5 Updated reference range on new analyzer 6 Updated reference range on new analyzer 7 Concerning GFR Guidelines: Normal function or mild [...] drugs that are excreted by the kidneys. 8 Concerning GFR Guidelines for Americans: Normal function or mild renal disease, if clinically at risk: >/=60 mL/min Moderately decreased: 30-59 Severely decreased: 15-29 Renal failure: <15 9 Updated Reference Range -2017 10 Per NCEP ATP III Guidelines: Results lower than 40 mg/dL are suggestive of increased risk for coronary artery disease. Results > or=to 60 mg/dL are considered a negative risk factor. 11 Per NCEP ATP III Guidelines: Normal Population <130 Patients with medical conditions: CHD/DM Optimal: <100 Borderline high: 130-159 High: 160-189 Very high: >189 12 Default Test Order (No Match) DO NOT RELEASE PLT COUNT BEFORE A SCAN IS DONE DO NOT RELEASE PLT COUNT BEFORE A SCAN IS DONE 13 Per NCEP ATP III Guidelines: Results lower than 40 mg/dL are suggestive of increased risk for coronary artery disease. Results > or=to 60 mg/dL are considered a negative risk factor. 14 Per NCEP ATP III Guidelines: Normal Population <130 Patients with medical conditions: CHD/DM Optimal: <100 Borderline high: 130-159 High: 160-189 Very high: >189 15 Beginning 09/19/06 PSA values assayed at [facility] uses chemiluminescence methodology manufactured by [employer] for use on the DXI analyzer. Values obtained with different assay methods or kits can not be used interchangeably. Serum PSA measurement is not an absolute test for malignancy. The PSA value should be used in conjunction with information available from clinical evaluation and other diagnostic procedures. 16 Unable to report platelet count due to platelet clumping. Result amended from () (07/04/2017 11:04 AM) to (Unable to report platelet count due to platelet clumping.) (07/04/2017 11:04 AM) by MARILYN. 17 Unable to report platelet count due to platelet clumping. Result amended from () (07/04/2017 11:04 AM) to (Unable to report platelet count due to platelet clumping.) (07/04/2017 11:04 AM) by MARILYN. 18 Result amended from (Not Reported) (07/04/2017 11:04 AM) to (53.9) (07/04/2017 11:04 AM) by MARILYN. 19 Result amended from (Not Reported) (07/04/2017 11:05 AM) to (30.2) (07/04/2017 11:05 AM) by MARILYN. 20 Result amended from (Not Reported) (07/04/2017 11:05 AM) to (12.5) (07/04/2017 11:05 AM) by MARILYN. 21 Result amended from (Not Reported) (07/04/2017 11:05 AM) to (2.4) (07/04/2017 11:05 AM) by MARILYN. 22 Result amended from (Not Reported) (07/04/2017 11:05 AM) to (1.0) (07/04/2017 11:05 AM) by MARILYN. 23 Result amended from (Not Reported) (07/04/2017 11:05 AM) to (5.9) (07/04/2017 11:05 AM) by MARILYN. 24 Result amended from (Not Reported) (07/04/2017 11:05 AM) to (3.3) (07/04/2017 11:05 AM) by MARILYN. 25 Result amended from (Not Reported) (07/04/2017 11:05 AM) to (1.4) (07/04/2017 11:05 AM) by MARILYN. 26 Result amended from (Not Reported) (07/04/2017 11:06 AM) to (0.3) (07/04/2017 11:06 AM) by MARILYN. 27 Result amended from (Not Reported) (07/04/2017 11:06 AM) to (0.1) (07/04/2017 11:06 AM) by MARILYN. 28 Updated reference range on new analyzer 29 Updated reference range on new analyzer 30 Concerning GFR Guidelines: Normal function or mild [...] drugs that are excreted by the kidneys. 31 Concerning GFR Guidelines for Americans: Normal function or mild renal disease, if clinically at risk: >/=60 mL/min Moderately decreased: 30-59 Severely decreased: 15-29 Renal failure: <15 32 Updated reference range on new analyzer 33 Beginning 09/19/06 PSA values assayed at [facility] uses chemiluminescence methodology manufactured by [employer] for use on the DXI analyzer. Values obtained with different assay methods or kits can not be used interchangeably. Serum PSA measurement is not an absolute test for malignancy. The PSA value should be used in conjunction with information available from clinical evaluation and other diagnostic procedures. 34 Platelets clumped but appear normal in number. 35 Updated reference range on new analyzer 36 Updated reference range on new analyzer 37 Concerning GFR Guidelines: Normal function or mild [...] drugs that are excreted by the kidneys. 38 Concerning GFR Guidelines for Americans: Normal function or mild renal disease, if clinically at risk: >/=60 mL/min Moderately decreased: 30-59 Severely decreased: 15-29 Renal failure: <15 39 Updated reference range on new analyzer 40 Per NCEP ATP III Guidelines: Results lower than 40 mg/dL are suggestive of increased risk for coronary artery disease. Results > or=to 60 mg/dL are considered a negative risk factor. 41 Per NCEP ATP III Guidelines: Normal Population <130 Patients with medical conditions: CHD/DM Optimal: <100 Borderline high: 130-159 High: 160-189 Very high: >189 42 B96.81 43 Performed at: RN - [facility] [address] [id number] [employer]board Grinder: Alma Rsoa Edward MD, Phone: [phone] 44 Per NCEP ATP III Guidelines: Results lower than 40 mg/dL are suggestive of increased risk for coronary artery disease. Results > or=to 60 mg/dL are considered a negative risk factor. 45 Per NCEP ATP III Guidelines: Normal Population <130 Patients with medical conditions: CHD/DM Optimal: <100 Borderline high: 130-159 High: 160-189 Very high: >189 46 Platelets clumped but appear normal in number. 47 Concerning GFR Guidelines: Normal function or mild [...] drugs that are excreted by the kidneys. 48 Concerning GFR Guidelines for Americans: Normal function or mild renal disease, if clinically at risk: >/=60 mL/min Moderately decreased: 30-59 Severely decreased: 15-29 Renal failure: <15 49 Beginning 09/19/06 PSA values assayed at [facility] uses chemiluminescence methodology manufactured by [employer] for use on the DXI analyzer. Values obtained with different assay methods or kits can not be used interchangeably. Serum PSA measurement is not an absolute test for malignancy. The PSA value should be used in conjunction with information available from clinical evaluation and other diagnostic procedures. 50 Unable to perform accurate count due to platelet clumping 51 Fastin hours 52 Beginning 09/19/06 PSA values assayed at [facility] uses chemiluminescence methodology manufactured by [employer] for use on the DXI analyzer. Values obtained with different assay methods or kits can not be used interchangeably. Serum PSA measurement is not an absolute test for malignancy. The PSA value should be used in conjunction with information available from clinical evaluation and other diagnostic procedures. 53 Per NCEP ATP III Guidelines: Results lower than 40 mg/dL are suggestive of increased risk for coronary artery disease. Results > or=to 60 mg/dL are considered a negative risk factor. 54 Per NCEP ATP III Guidelines: Normal Population <130 Patients with medical conditions: CHD/DM Optimal: <100 Borderline high: 130-159 High: 160-189 Very high: >189 55 Platelets clumped but appear normal in number. 56 Concerning GFR Guidelines: Normal function or mild [...] drugs that are excreted by the kidneys. 57 Concerning GFR Guidelines for Americans: Normal function or mild renal disease, if clinically at risk: >/=60 mL/min Moderately decreased: 30-59 Severely decreased: 15-29 Renal failure: <15 58 Per NCEP ATP III Guidelines: Results lower than 40 mg/dL are suggestive of increased risk for coronary artery disease. Results > or=to 60 mg/dL are considered a negative risk factor. 59 Per NCEP ATP III Guidelines: Normal Population <130 Patients with medical conditions: CHD/DM Optimal: <100 Borderline high: 130-159 High: 160-189 Very high: >189 60 Platelets clumped but appear normal in number. 61 Concerning GFR Guidelines: Normal function or mild [...] drugs that are excreted by the kidneys. 62 Concerning GFR Guidelines for Americans: Normal function or mild renal disease, if clinically at risk: >/=60 mL/min Moderately decreased: 30-59 Severely decreased: 15-29 Renal failure: <15 63 Unable to perform accurate count due to platelet clumping 64 Concerning GFR Guidelines: Normal function or mild [...] drugs that are excreted by the kidneys. 65 Concerning GFR Guidelines for Americans: Normal function or mild renal disease, if clinically at risk: >/=60 mL/min Moderately decreased: 30-59 Severely decreased: 15-29 Renal failure: <15 66 Platelets clumped but appear normal in number. 67 Per NCEP ATP III Guidelines: Results lower than 40 mg/dL are suggestive of increased risk for coronary artery disease. Results > or=to 60 mg/dL are considered a negative risk factor. 68 Per NCEP ATP III Guidelines: Normal Population <130 Patients with medical conditions: CHD/DM Optimal: <100 Borderline high: 130-159 High: 160-189 Very high: >189 69 Beginning 09/19/06 PSA values assayed at [facility] uses an EIA methodology manufactured by [employer] for use on the DXI analyzer. Values obtained with different assay methods or kits can not be used interchangeably. Serum PSA measurement is not an absolute test for malignancy. The PSA value should be used in conjunction with information available from clinical evaluation and other diagnostic procedures. 70 Is patient on anticoagulants? Coumadin Is patient on anticoagulants? None QUERY: Anticoagulant Therapy? QUERY: Date of Last Dose: QUERY: Time of Last Dose: 71 Note: Persistent reduction for 3 months or more in an eGFR <60 mL/min/1.73 m2 defines CKD. Patients with eGFR values >/=60 mL/min/1.73 m2 may also have CKD if evidence of persistent proteinuria is present. The original MDRD equation for estimated GFR is not valid for patients less than 18 years of age. Additional information may be found at www.kdoqi.org. 72 0.0 - 0.045 ng/mL: Normal 0.046 - 0.5 ng/mL: Suggestive 0.6 - 1.5 ng/mL: Consistent 73 THERAPEUTIC INR RANGE: 2.0 - 3.0 DVT, Pulmonary embolus, prophylaxis against venous thrombosis or systemic embolization in high risk patients. 2.5 - 3.5 Mechanical heart valves 74 Reference Guidelines*: Desirable: ........... < 200 mg/dL Borderline High: ..... 200-239 mg/dL High: ................ >=240 mg/dL * The National Cholesterol Education Program (NCEP) 75 Reference Guidelines*: Low HDL: ..... < 40 mg/dL Normal: ..... 40-60 mg/dL Desirable: ... > 60 mg/dL *The National Cholesterol Education Program(NCEP) 76 Reference Guidelines*: Optimal:........... <100 mg/dL Near Optimal....... 100-129 mg/dL Borderline High.... 130-159 mg/dL High............... 160-189 mg/dL Very High.......... >=190 mg/dL * Source: National Cholesterol Education Program ( NCEP) 77 Reference Guidelines*: Normal: ............. < 150 mg/dL Borderline High: .... 150-199 mg/dL High: ............... 200-499 mg/dL Very High: .......... > 500 mg/dL * Source: National Cholesterol Education Program (NCEP) 78 Adult male reference interval is based on a population of lean males up to 40 years old. Performed at: [address] [id number] Hardboard Grinder: Alma Rosa Edward MD, Phone: [phone] 79 Note: Persistent reduction for 3 months or more in an eGFR <60 mL/min/1.73 m2 defines CKD. Patients with eGFR values >/=60 mL/min/1.73 m2 may also have CKD if evidence of persistent proteinuria is present. The original MDRD equation for estimated GFR is not valid for patients less than 18 years of age. Additional information may be found at www.kdoqi.org. 80 THIS ASSAY IS NOT INTENDED A CANCER SCREENING TEST The concentration of PSA in a given specimen, determined with assays from different manufacturers, can vary due to differences in assay methods and reagent specificity. Values obtained from different assay methods cannot be used interchangeably. 81 Performed at: [address] [id number] Hardboard Grinder: Alma Rosa Edward MD, Phone: [phone] 82 Performed at: [address] [id number] Hardboard Grinder: Alma Rosa Edward MD, Phone: [phone] Performed at: [address] [id number] Hardboard Grinder: Alessandro Krishnan MD, Phone: [phone] 83 THIS ASSAY IS NOT INTENDED A CANCER SCREENING TEST The concentration of PSA in a given specimen, determined with assays from different manufacturers, can vary due to differences in assay methods and reagent specificity. Values obtained from different assay methods cannot be used interchangeably. 84 A1c value between 5.7% and 6.4% is considered at increased risk for diabetes. A1c value greater than 6.5 % is considered essentially diagnostic for Type II diabetes. Current guidelines recommend a treatment goal of <7% for diabetic patients. This method will measure glycosylated hemoglobin variants, HbS, HbG , HbH, HbWayne, HbC, HbE, etc. Other hemoglobin- opathies may give incorrect results with this test. 85 Note: Persistent reduction for 3 months or more in an eGFR <60 mL/min/1.73 m2 defines CKD. Patients with eGFR values >/=60 mL/min/1.73 m2 may also have CKD if evidence of persistent proteinuria is present. The original MDRD equation for estimated GFR is not valid for patients less than 18 years of age. Additional information may be found at www.kdoqi.org. 86 Performed at: RN - [facility] [address] [id number] Hardboard Grinder: Alma Rosa Edward MD, Phone: [phone] 87 Note: Persistent reduction for 3 months or more in an eGFR <60 mL/min/1.73 m2 defines CKD. Patients with eGFR values >/=60 mL/min/1.73 m2 may also have CKD if evidence of persistent proteinuria is present. The original MDRD equation for estimated GFR is not valid for patients less than 18 years of age. Additional information may be found at www.kdoqi.org. 88 Specimen slightly Hemolyzed, interpret with caution 89 Note: Persistent reduction for 3 months or more in an eGFR <60 mL/min/1.73 m2 defines CKD. Patients with eGFR values >/=60 mL/min/1.73 m2 may also have CKD if evidence of persistent proteinuria is present. The original MDRD equation for estimated GFR is not valid for patients less than 18 years of age. Additional information may be found at www.kdoqi.org. 90 THIS ASSAY IS NOT INTENDED A CANCER SCREENING TEST The concentration of PSA in a given specimen, determined with assays from different manufacturers, can vary due to differences in assay methods and reagent specificity. Values obtained from different assay methods cannot be used interchangeably. 91 Note: Persistent reduction for 3 months or more in an eGFR <60 mL/min/1.73 m2 defines CKD. Patients with eGFR values >/=60 mL/min/1.73 m2 may also have CKD if evidence of persistent proteinuria is present. The original MDRD equation for estimated GFR is not valid for patients less than 18 years of age. Additional information may be found at www.kdoqi.org. Procedures Date CPT Code Description Status Comment 03/09/2018 81248 Omt 3-4 Body Regions Completed 10/13/2016 Colonoscopy Completed Document: 10/13/16 - Colonoscopy 05/26/2016 [id number] Admin Of Inj (Therapeutic Completed Phrophylactic Or Diagnostic Subq Inj 05/06/2016 [id number] Admin Of Inj (Therapeutic Completed Phrophylactic Or Diagnostic Subq Inj 04/22/2016 [id number] Admin Of Inj (Therapeutic Completed Phrophylactic Or Diagnostic Subq Inj 04/08/2016 [id number] Admin Of Inj (Therapeutic Completed Phrophylactic Or Diagnostic Subq Inj 03/25/2016 [id number] Admin Of Inj (Therapeutic Completed Phrophylactic Or Diagnostic Subq Inj 03/11/2016 [id number] Admin Of Inj (Therapeutic Completed Phrophylactic Or Diagnostic Subq Inj 02/26/2016 [id number] Admin Of Inj (Therapeutic Completed Phrophylactic Or Diagnostic Subq Inj 02/12/2016 [id number] Admin Of Inj (Therapeutic Completed Phrophylactic Or Diagnostic Subq Inj 01/29/2016 [id number] Admin Of Inj (Therapeutic Completed Phrophylactic Or Diagnostic Subq Inj 01/15/2016 [id number] Admin Of Inj (Therapeutic Completed Phrophylactic Or Diagnostic Subq Inj 01/01/2016 [id number] Admin Of Inj (Therapeutic Completed Phrophylactic Or Diagnostic Subq Inj 12/18/2015 [id number] Admin Of Inj (Therapeutic Completed Phrophylactic Or Diagnostic Subq Inj 12/04/2015 [id number] Admin Of Inj (Therapeutic Completed Phrophylactic Or Diagnostic Subq Inj 11/20/2015 [id number] Admin Of Inj (Therapeutic Completed Phrophylactic Or Diagnostic Subq Inj 11/06/2015 43492 Admin Of Inj (Therapeutic Completed Phrophylactic Or Diagnostic Subq Inj 10/23/2015 [id number] Admin Of Inj (Therapeutic Completed Phrophylactic Or Diagnostic Subq Inj 10/09/2015 [id number] Admin Of Inj (Therapeutic Completed Phrophylactic Or Diagnostic Subq Inj 09/25/2015 [id number] Admin Of Inj (Therapeutic Completed Phrophylactic Or Diagnostic Subq Inj 09/11/2015 [id number] Admin Of Inj (Therapeutic Completed Phrophylactic Or Diagnostic Subq Inj 08/28/2015 [id number] Admin Of Inj (Therapeutic Completed Phrophylactic Or Diagnostic Subq Inj 08/14/2015 [id number] Admin Of Inj (Therapeutic Completed Phrophylactic Or Diagnostic Subq Inj 07/31/2015 [id number] Admin Of Inj (Therapeutic Completed Phrophylactic Or Diagnostic Subq Inj 07/17/2015 81529 Echography Retroperitoneal Completed Complete 07/09/2015 [id number] Admin Of Inj (Therapeutic Completed Phrophylactic Or Diagnostic Subq Inj 06/25/2015 [id number] Admin Of Inj (Therapeutic Completed Phrophylactic Or Diagnostic Subq Inj 06/11/2015 [id number] Admin Of Inj (Therapeutic Completed Phrophylactic Or Diagnostic Subq Inj 05/28/2015 [id number] Admin Of Inj (Therapeutic Completed Phrophylactic Or Diagnostic Subq Inj 05/14/2015 [id number] Admin Of Inj (Therapeutic Completed Phrophylactic Or Diagnostic Subq Inj 04/30/2015 84621 Admin Of Inj (Therapeutic Completed Phrophylactic Or Diagnostic Subq Inj 04/16/2015 [id number] Admin Of Inj (Therapeutic Completed Phrophylactic Or Diagnostic Subq Inj 03/27/2015 [id number] Admin Of Inj (Therapeutic Completed Phrophylactic Or Diagnostic Subq Inj 03/13/2015 [id number] Admin Of Inj (Therapeutic Completed Phrophylactic Or Diagnostic Subq Inj 02/27/2015 [id number] Admin Of Inj (Therapeutic Completed Phrophylactic Or Diagnostic Subq Inj 02/13/2015 [id number] Admin Of Inj (Therapeutic Completed Phrophylactic Or Diagnostic Subq Inj 01/30/2015 [id number] Admin Of Inj (Therapeutic Completed Phrophylactic Or Diagnostic Subq Inj 01/08/2015 26776 Admin Of Inj (Therapeutic Completed Phrophylactic Or Diagnostic Subq Inj 12/25/2014 [id number] Admin Of Inj (Therapeutic Completed Phrophylactic Or Diagnostic Subq Inj 11/25/2014 [id number] Admin Of Inj (Therapeutic Completed Phrophylactic Or Diagnostic Subq Inj 11/06/2014 [id number] Admin Of Inj (Therapeutic Completed Phrophylactic Or Diagnostic Subq Inj 10/23/2014 [id number] Admin Of Inj (Therapeutic Completed Phrophylactic Or Diagnostic Subq Inj 10/09/2014 [id number] Admin Of Inj (Therapeutic Completed Phrophylactic Or Diagnostic Subq Inj 09/23/2014 [id number] Admin Of Inj (Therapeutic Completed Phrophylactic Or Diagnostic Subq Inj 09/05/2014 [id number] Admin Of Inj (Therapeutic Completed Phrophylactic Or Diagnostic Subq Inj 08/22/2014 [id number] Admin Of Inj (Therapeutic Completed Phrophylactic Or Diagnostic Subq Inj 08/08/2014 [id number] Admin Of Inj (Therapeutic Completed Phrophylactic Or Diagnostic Subq Inj 07/24/2014 [id number] Admin Of Inj (Therapeutic Completed Phrophylactic Or Diagnostic Subq Inj 07/09/2014 [id number] Admin Of Inj (Therapeutic Completed Phrophylactic Or Diagnostic Subq Inj 06/24/2014 83490 Admin Of Inj (Therapeutic Completed Phrophylactic Or Diagnostic Subq Inj 05/23/2014 [id number] Admin Of Inj (Therapeutic Completed Phrophylactic Or Diagnostic Subq Inj 05/10/2014 [id number] Admin Of Inj (Therapeutic Completed Phrophylactic Or Diagnostic Subq Inj 04/25/2014 [id number] Admin Of Inj (Therapeutic Completed Phrophylactic Or Diagnostic Subq Inj 04/11/2014 [id number] Admin Of Inj (Therapeutic Completed Phrophylactic Or Diagnostic Subq Inj 03/28/2014 [id number] Admin Of Inj (Therapeutic Completed Phrophylactic Or Diagnostic Subq Inj 03/14/2014 14705 Admin Of Inj (Therapeutic Completed Phrophylactic Or Diagnostic Subq Inj 02/28/2014 83684 Admin Of Inj (Therapeutic Completed Phrophylactic Or Diagnostic Subq Inj 02/14/2014 [id number] Admin Of Inj (Therapeutic Completed Phrophylactic Or Diagnostic Subq Inj 01/30/2014 [id number] Admin Of Inj (Therapeutic Completed Phrophylactic Or Diagnostic Subq Inj 01/16/2014 78500 Admin Of Inj (Therapeutic Completed Phrophylactic Or Diagnostic Subq Inj 01/02/2014 [id number] Admin Of Inj (Therapeutic Completed Phrophylactic Or Diagnostic Subq Inj 12/19/2013 [id number] Admin Of Inj (Therapeutic Completed Phrophylactic Or Diagnostic Subq Inj 12/10/2013 50507 Screening Hearing Test Completed 12/10/2013 89125 Visual Screening Test Completed 12/05/2013 23149 Admin Of Inj (Therapeutic Completed Phrophylactic Or Diagnostic Subq Inj 11/21/2013 10388 Admin Of Inj (Therapeutic Completed Phrophylactic Or Diagnostic Subq Inj 11/07/2013 24103 Admin Of Inj (Therapeutic Completed Phrophylactic Or Diagnostic Subq Inj 11/07/2013 72623 Measure Blood Oxygen Level Completed Single Determination 10/24/2013 80139 Admin Of Inj (Therapeutic Completed Phrophylactic Or Diagnostic Subq Inj 10/09/2013 14438 Admin Of Inj (Therapeutic Completed Phrophylactic Or Diagnostic Subq Inj 09/25/2013 53921 Admin Of Inj (Therapeutic Completed Phrophylactic Or Diagnostic Subq Inj 09/11/2013 79219 Admin Of Inj (Therapeutic Completed Phrophylactic Or Diagnostic Subq Inj 08/28/2013 51425 Admin Of Inj (Therapeutic Completed Phrophylactic Or Diagnostic Subq Inj 08/14/2013 10370 Admin Of Inj (Therapeutic Completed Phrophylactic Or Diagnostic Subq Inj 07/30/2013 69184 Admin Of Inj (Therapeutic Completed Phrophylactic Or Diagnostic Subq Inj 07/16/2013 70309 Admin Of Inj (Therapeutic Completed Phrophylactic Or Diagnostic Subq Inj 07/05/2013 31774 Admin Of Inj (Therapeutic Completed Phrophylactic Or Diagnostic Subq Inj 04/30/2013 82049 Measure Blood Oxygen Level Completed Single Determination 11/29/2012 13803 Screening Hearing Test Completed 08/04/2012 Colonoscopy Completed colitis, polyp 12/27/2011 53472 Visual Screening Test Completed 12/27/2011 79678 Screening Hearing Test Completed Encounters Type Date Location Provider CPT E/M Dx Office Visit 01/04/2018 8:00a [facility] [place] [address] R73.01 E03.9 E78.2 E29.1 N40.0 K57.33 G47.00 E66.09 J30.9 I10 D48.5 R60.9 R06.2 D72.829 Office Visit 07/06/2017 8:00a [facility] [place] [address] R73.01 E03.9 E78.2 N40.0 E29.1 K57.33 G47.00 E66.09 J30.9 I10 D48.5 R60.9 Office Visit 01/03/2017 8:30a [facility] [place] [address] R73.01 E03.9 E78.2 N40.0 E29.1 K57.33 G47.00 E66.09 J30.9 I10 D48.5 Office Visit 07/05/2016 8:00a [facility] [place] [address] E78.2 E29.1 N40.0 E03.9 K57.33 F32.9 G47.00 E66.09 J30.9 R73.01 Office Visit 12/26/2015 8:00a [facility] [place] [address] E29.1 E78.2 R06.02 L72.3 K57.33 F32.9 G47.00 N40.0 E66.09 Office Visit 06/18/2015 1:00p [facility] [place] [address] N28.9 K62.5 K57.33 E29.1 E78.2 I10 F32.9 G47.00 N40.0 Office Visit 06/12/2015 3:15p [facility] [place] [address] R10.32 K62.5 Office Visit 12/09/2014 1:00p [facility] [place] [address] 272.2 311 401.1 257.2 782.3 780.52 288.60 Office Visit 10/16/2014 8:30a [facility] [place] [id number] Plan of Care Future Appointment(s):03/17/2018 11:00 am - David Eduardo DO at [facility]04/06/2018 3:15 pm - David Eduardo DO at [facility]07/13/2018 8:15 am - David Eduardo DO at [facility]07/06/2018 7:40 am - Schedule, Laboratory at [facility]03/09/2018 - David Eduardo [id number] Concussion without loss of consciousness, subs [id number] CervicalgiaFollow up:Get an x-ray done today or soon. Follow up as [id number] Segmental and somatic dysfunction of cervical [id number] Headache
--- OUTSIDE RECORDS SUMMARY | 2018-03-26 19:55 | XMS REPORT ---
:1955 External Reference #:[id number] Author Organization [facility] Address [address] [address] Phone [phone] Care Team Providers Name Role Phone David Eduardo DO Care Team Information Prize Fighter Unavailable Payers Type Date Identification Numbers Payment Provider Subscriber Workers Compensation Onset: Policy Number: Workers' Comp Jose Laurent 2018 [id number] () PayID: [id number] [place] Medigap Part B Effective: 2012 Policy Number: [facility] / Marjorie Parrish Jose Laurent [id number] Plan Group Number: [id number] [address] Group Name: [place] [address] PayID: [id number] Medigap Part B Expires: 2013 Policy Number: 0 [facility] [employer] [place] [address] Problems Date Description Provider Status Onset: 11/07/2013 Testicular hypofunction David Eduardo DO Active Onset: 12/28/2012 Mixed hyperlipidemia David Eduardo DO Active Onset: 11/29/2012 Obesity David Eduardo DO Active Onset: 11/29/2012 Insomnia David Eduardo DO Active Onset: 11/29/2012 Chronic obstructive lung disease David Eduardo DO Active Onset: 12/27/2011 Benign essential hypertension Ofe Sepulveda NP Active Onset: 10/15/2014 Pure hypercholesterolemia Eduardo, David, DO Active Family History Date Family Member(s) Problem(s) Comments General Stroke General Diabetes, Adult General Hypertension General Asthma General Allergies General COPD General Alcoholism General Hypercholesterolemia Mother Cancer, Lung Social History Type Date Description Comments Marital Status Occupation Moving [employer] Cigarette Use Former Cigarette Smoker ETOH [...] 07/26 Active Tablets 150mg 90tab Take 1 , s Tablet By David Mouth AT DO Bedtime as Needed- Cancel 100 MG Script Already Sent Viagra 07/06 Active Tablets 100mg 6tabs / to 1 by Eduardo mouth every David, day as DO needed Hydrochlorothiazid 07/06 Active Tablets 25mg 90tab 1 By Mouth Eduardo, e s Every Day DO David Cetirizine HCL 07/05 Active Tablets 10mg 90tab 1 PO QHS J30.9 Eduardo s DO David 3ML Syringe/22G X 05/26 Active Misc 22G X 1" 90uni Use as E29.1 Eduardo, 1"/Luer Lock Tip 3 ML ts Directed DO David Clotrimazole/Betam 01/03 Active Cream 1-0.05% 45gm apply Eduardo, ethasone topically David Dipropdee dee to affected DO area 2 times a day as needed Lisinopril 12/25 Active Tablets 40mg 90tab 1 By Mouth Eduardo s Every Day DO David Zetia 12/09 Active Tablets 10mg 30tab 1 By Mouth E78.2 Eduardo s Every Day DO David Testosterone 07/04 Active Solution 200mg/ml 6ml inject 1 Eduardo, Cypionate milliliters David every 2 DO weeks im. code f. please do not fill till 02/20/18 Ventolin HFA 02/01 Hx Aerosol 108(90Bas 18uni 2 puffs e) ts every 4 David, - mcg/Act hours as DO 02/01 needed Trazodone HCL 10/08 Hx Tablets 100mg 30tab Take 1/2 To Eduardo, s 1 Tablet By David, - Mouth AT DO 07/26 Bedtime as Needed Insomnia Clotrimazole/Betam 01/03 Hx Cream 45uni apply twice Eduardo, ethasone ts a day to Jose Roberto Hernandezropionate - the r foot DO 01/03 for the next 2 weeks Escitalopram 10/16 Hx Tablets 10mg 30tab 1 By Mouth F32.9 Eduardo, s Every Day David, - DO 07/05 Clotrimazole/Betam 03/07 Hx Cream 45gm apply twice Eduardo, ethasone a day to Candida Hernandezionate - the R foot DO 10/16 for [...] Tablets 20mg 90tab 1 by mouth Eduardo, /2012 s every day David, - DO 12/25 Aleve PM 00/00 Hx Tablets 220-25mg Unknown /0000 - 10/08 Immunizations CPT Code Status Date Vaccine Lot # [id number] Given 02/27/2018 Tdap (Adacel) Ages 7 And [...] clumpe <SEE NOTE> K/ul 140-400 60 Basic ([facility]) 06/04/2015 Sodium 134 mmol/L 134-142 Potassium 4.9 mmol/L 3.5-5.2 Chloride 101 mmol/L 97-109 Carbon Dioxide 28 mmol/L 24-34 Glucose 99 mg/dL 70-105 BUN 12 mg/dL 6 Creatinine 0.8 mg/dL 0.5-1.4 Calcium 9.1 mg/dL [...] 0.0-0.5 Abs Basophils# 0.0 K/ul 0.0-0.3 Basic ([facility]) 12/04/2014 Sodium 139 mmol/L 134-142 Potassium [...] - Dipstick Negative mg/dL Negative Urine Specific [place] 1.010 1.010-1.030 Urine Urobilinogen - Dipstick 0.2 [...] Mean Platelet Volume 10.8 fL High 6.6-10.6 [place] # 1.28 K/uL High 0.0-0.6 [place] % 14.0 % High 0.0-10.0 Neut# 4.15 [...] - Dipstick Negative mg/dL Negative Urine Specific [place] <=1.005 Low 1.010-1.030 Urine Urobilinogen - Dipstick [...] Mean Platelet Volume 12.6 fL High 6.6-10.6 [place] # 0.99 K/uL High 0.0-0.6 [place] % 14.6 % High 0.0-10.0 Neut# 3.13 [...] 2 Beginning 09/19/06 PSA values assayed at [facility] uses chemiluminescence methodology manufactured by [employer] for use on the DXI analyzer. Values [...] 15 Beginning 09/19/06 PSA values assayed at [facility] uses chemiluminescence methodology manufactured by [employer] for use on the DXI analyzer. [...] 33 Beginning 09/19/06 PSA values assayed at [facility] uses chemiluminescence methodology manufactured by [employer] for use on the DXI analyzer. Values [...] B96.81 43 Performed at: RN - [facility] [address] [id number] [employer]: Alma Rosa Edward MD, Phone: [phone] Per NCEP ATP III Guidelines: Results [...] 49 Beginning 09/19/06 PSA values assayed at [facility] uses chemiluminescence methodology manufactured by [employer] for use on the DXI analyzer. Values [...] 52 Beginning 09/19/06 PSA values assayed at [facility] uses chemiluminescence methodology manufactured by [employer] for use on the DXI analyzer. Values [...] 69 Beginning 09/19/06 PSA values assayed at [facility] uses an EIA methodology manufactured by [employer] for use on the DXI analyzer. Values [...] up to 40 years old. Performed at: [address] [id number] [employer]: Alma Rosa Edward MD, Phone: [phone] Note: Persistent reduction for 3 months [...] cannot be used interchangeably. 81 Performed at: [address] [id number] [employer]: Alma Rosa Edward MD, Phone: [phone] 82 Performed at: [address] [id number] [employer]: Alma Rosa Edward MD, Phone: [phone] Performed at: [address] [id number] [employer]: Alessandro Krishnan MD, Phone: [phone] THIS ASSAY IS NOT INTENDED A [...] [email or web address]. 86 Performed at: RN - [facility] [address] [id number] [employer]: Alma Rosa Edward MD, Phone: [phone] Note: Persistent reduction for 3 months [...] Date CPT Code Description Status Comment 03/09/2018 77414 Omt 3-4 Body Regions Completed 10/13/2016 Colonoscopy Completed Document: 10/13/16 - Colonoscopy 05/26/2016 91396 Admin Of Inj (Therapeutic Completed Phrophylactic Or Diagnostic Subq Inj 05/06/2016 55339 Admin Of Inj (Therapeutic Completed Phrophylactic Or Diagnostic Subq Inj 04/22/2016 10358 Admin Of Inj (Therapeutic Completed Phrophylactic Or Diagnostic Subq Inj 04/08/2016 41836 Admin Of Inj (Therapeutic Completed Phrophylactic Or Diagnostic Subq Inj 03/25/2016 08178 Admin Of Inj (Therapeutic Completed Phrophylactic Or Diagnostic Subq Inj 03/11/2016 40998 Admin Of Inj (Therapeutic Completed Phrophylactic Or Diagnostic Subq Inj 02/26/2016 67314 Admin Of Inj (Therapeutic Completed Phrophylactic Or Diagnostic Subq Inj 02/12/2016 27271 Admin Of Inj (Therapeutic Completed Phrophylactic Or Diagnostic Subq Inj 01/29/2016 42567 Admin Of Inj (Therapeutic Completed Phrophylactic Or Diagnostic Subq Inj 01/15/2016 80852 Admin Of Inj (Therapeutic Completed Phrophylactic Or Diagnostic Subq Inj 01/01/2016 78319 Admin Of Inj (Therapeutic Completed Phrophylactic Or Diagnostic Subq Inj 12/18/2015 97075 Admin Of Inj (Therapeutic Completed Phrophylactic Or Diagnostic Subq Inj 12/04/2015 03334 Admin Of Inj (Therapeutic Completed Phrophylactic Or Diagnostic Subq Inj 11/20/2015 42409 Admin Of Inj (Therapeutic Completed Phrophylactic Or Diagnostic Subq Inj 11/06/2015 33796 Admin Of Inj (Therapeutic Completed Phrophylactic Or Diagnostic Subq Inj 10/23/2015 47746 Admin Of Inj (Therapeutic Completed Phrophylactic Or Diagnostic Subq Inj 10/09/2015 46150 Admin Of Inj (Therapeutic Completed Phrophylactic Or Diagnostic Subq Inj 09/25/2015 91966 Admin Of Inj (Therapeutic Completed Phrophylactic Or Diagnostic Subq Inj 09/11/2015 23298 Admin Of Inj (Therapeutic Completed Phrophylactic Or Diagnostic Subq Inj 08/28/2015 16890 Admin Of Inj (Therapeutic Completed Phrophylactic Or Diagnostic Subq Inj 08/14/2015 57052 Admin Of Inj (Therapeutic Completed Phrophylactic Or Diagnostic Subq Inj 07/31/2015 29683 Admin Of Inj (Therapeutic Completed Phrophylactic Or Diagnostic Subq Inj 07/17/2015 10345 Echography Retroperitoneal Completed Complete 07/09/2015 47511 Admin Of Inj (Therapeutic Completed Phrophylactic Or Diagnostic Subq Inj 06/25/2015 02750 Admin Of Inj (Therapeutic Completed Phrophylactic Or Diagnostic Subq Inj 06/11/2015 90354 Admin Of Inj (Therapeutic Completed Phrophylactic Or Diagnostic Subq Inj 05/28/2015 92317 Admin Of Inj (Therapeutic Completed Phrophylactic Or Diagnostic Subq Inj 05/14/2015 65600 Admin Of Inj (Therapeutic Completed Phrophylactic Or Diagnostic Subq Inj 04/30/2015 02296 Admin Of Inj (Therapeutic Completed Phrophylactic Or Diagnostic Subq Inj 04/16/2015 95670 Admin Of Inj (Therapeutic Completed Phrophylactic Or Diagnostic Subq Inj 03/27/2015 99961 Admin Of Inj (Therapeutic Completed Phrophylactic Or Diagnostic Subq Inj 03/13/2015 20433 Admin Of Inj (Therapeutic Completed Phrophylactic Or Diagnostic Subq Inj 02/27/2015 48351 Admin Of Inj (Therapeutic Completed Phrophylactic Or Diagnostic Subq Inj 02/13/2015 74633 Admin Of Inj (Therapeutic Completed Phrophylactic Or Diagnostic Subq Inj 01/30/2015 05625 Admin Of Inj (Therapeutic Completed Phrophylactic Or Diagnostic Subq Inj 01/08/2015 22478 Admin Of Inj (Therapeutic Completed Phrophylactic Or Diagnostic Subq Inj 12/25/2014 11302 Admin Of Inj (Therapeutic Completed Phrophylactic Or Diagnostic Subq Inj 11/25/2014 11288 Admin Of Inj (Therapeutic Completed Phrophylactic Or Diagnostic Subq Inj 11/06/2014 40531 Admin Of Inj (Therapeutic Completed Phrophylactic Or Diagnostic Subq Inj 10/23/2014 94145 Admin Of Inj (Therapeutic Completed Phrophylactic Or Diagnostic Subq Inj 10/09/2014 63780 Admin Of Inj (Therapeutic Completed Phrophylactic Or Diagnostic Subq Inj 09/23/2014 46918 Admin Of Inj (Therapeutic Completed Phrophylactic Or Diagnostic Subq Inj 09/05/2014 22994 Admin Of Inj (Therapeutic Completed Phrophylactic Or Diagnostic Subq Inj 08/22/2014 36031 Admin Of Inj (Therapeutic Completed Phrophylactic Or Diagnostic Subq Inj 08/08/2014 57216 Admin Of Inj (Therapeutic Completed Phrophylactic Or Diagnostic Subq Inj 07/24/2014 45750 Admin Of Inj (Therapeutic Completed Phrophylactic Or Diagnostic Subq Inj 07/09/2014 15437 Admin Of Inj (Therapeutic Completed Phrophylactic Or Diagnostic Subq Inj 06/24/2014 73459 Admin Of Inj (Therapeutic Completed Phrophylactic Or Diagnostic Subq Inj 05/23/2014 28672 Admin Of Inj (Therapeutic Completed Phrophylactic Or Diagnostic Subq Inj 05/10/2014 25930 Admin Of Inj (Therapeutic Completed Phrophylactic Or Diagnostic Subq Inj 04/25/2014 78162 Admin Of Inj (Therapeutic Completed Phrophylactic Or Diagnostic Subq Inj 04/11/2014 40732 Admin Of Inj (Therapeutic Completed Phrophylactic Or Diagnostic Subq Inj 03/28/2014 49891 Admin Of Inj (Therapeutic Completed Phrophylactic Or Diagnostic Subq Inj 03/14/2014 24501 Admin Of Inj (Therapeutic Completed Phrophylactic Or Diagnostic Subq Inj 02/28/2014 61573 Admin Of Inj (Therapeutic Completed Phrophylactic Or Diagnostic Subq Inj 02/14/2014 68548 Admin Of Inj (Therapeutic Completed Phrophylactic Or Diagnostic Subq Inj 01/30/2014 28125 Admin Of Inj (Therapeutic Completed Phrophylactic Or Diagnostic Subq Inj 01/16/2014 57770 Admin Of Inj (Therapeutic Completed Phrophylactic Or Diagnostic Subq Inj 01/02/2014 01310 Admin Of Inj (Therapeutic Completed Phrophylactic Or Diagnostic Subq Inj 12/19/2013 45285 Admin Of Inj (Therapeutic Completed Phrophylactic Or Diagnostic Subq Inj 12/10/2013 65375 Screening Hearing Test Completed 12/10/2013 62053 Visual Screening Test Completed 12/05/2013 51376 Admin Of Inj (Therapeutic Completed Phrophylactic Or Diagnostic Subq Inj 11/21/2013 68017 Admin Of Inj (Therapeutic Completed Phrophylactic Or Diagnostic Subq Inj 11/07/2013 19840 Admin Of Inj (Therapeutic Completed Phrophylactic Or Diagnostic Subq Inj 11/07/2013 26765 Measure Blood Oxygen Level Completed Single Determination 10/24/2013 39173 Admin Of Inj (Therapeutic Completed Phrophylactic Or Diagnostic Subq Inj 10/09/2013 16615 Admin Of Inj (Therapeutic Completed Phrophylactic Or Diagnostic Subq Inj 09/25/2013 95536 Admin Of Inj (Therapeutic Completed Phrophylactic Or Diagnostic Subq Inj 09/11/2013 77437 Admin Of Inj (Therapeutic Completed Phrophylactic Or Diagnostic Subq Inj 08/28/2013 58190 Admin Of Inj (Therapeutic Completed Phrophylactic Or Diagnostic Subq Inj 08/14/2013 75632 Admin Of Inj (Therapeutic Completed Phrophylactic Or Diagnostic Subq Inj 07/30/2013 53426 Admin Of Inj (Therapeutic Completed Phrophylactic Or Diagnostic Subq Inj 07/16/2013 89591 Admin Of Inj (Therapeutic Completed Phrophylactic Or Diagnostic Subq Inj 07/05/2013 24962 Admin Of Inj (Therapeutic Completed Phrophylactic Or Diagnostic Subq Inj 04/30/2013 90167 Measure Blood Oxygen Level Completed Single Determination 11/29/2012 56259 Screening Hearing Test Completed 08/04/2012 Colonoscopy Completed colitis, polyp 12/27/2011 34461 Visual Screening Test Completed 12/27/2011 65884 Screening Hearing Test Completed Encounters Type Date Location Provider CPT E/M Dx Office Visit 01/04/2018 8:00[place] [address] R73.01 E03.9 E78.2 E29.1 N40.0 K57.33 G47.00 E66.09 J30.9 I10 D48.5 R60.9 R06.2 D72.829 Office Visit 07/06/2017 8:00a [place] [address] R73.01 E03.9 E78.2 N40.0 E29.1 K57.33 G47.00 E66.09 J30.9 I10 D48.5 R60.9 Office Visit 01/03/2017 8:30[place] [address] R73.01 E03.9 E78.2 N40.0 E29.1 K57.33 G47.00 E66.09 J30.9 I10 D48.5 Office Visit 07/05/2016 8:00[place] [address] E78.2 E29.1 N40.0 E03.9 K57.33 F32.9 G47.00 E66.09 J30.9 R73.01 Office Visit 12/26/2015 8:00[place] [address] E29.1 E78.2 R06.02 L72.3 K57.33 F32.9 G47.00 N40.0 E66.09 Office Visit 06/18/2015 1:00p [place] [address] N28.9 K62.5 K57.33 E29.1 E78.2 I10 F32.9 G47.00 N40.0 Office Visit 06/12/2015 3:15p [facility] [place] [place] [address] R10.32 K62.5 Office Visit 12/09/2014 1:00p [facility] [place] [place] [address] 272.2 311 401.1 257.2 782.3 780.52 288.60 Office Visit 10/16/2014 8:30a [facility] [place] [address] 311 Plan of Care Future Appointment(s):03/17/2018 11:00 am - David Eduardo DO at [facility]04/06/2018 3:15 pm - David Eduardo DO at [facility]07/13/2018 8:15 am - David Eduardo DO at [facility]07/06/2018 7:40 am - Schedule, Laboratory at [facility]03/09/2018 - David Eduardo DOS06.0x0D Concussion without loss of consciousness, subs myzrryG43.2 CervicalgiaNew Xrays:Spine, Cervical CompleteFollow up:Get an x-ray done today or soon. Follow up as [id number] Segmental and somatic dysfunction of cervical nyauokD58 Headache
[2018-03-26] MEDS ORDERED: Ipratropium 0.5MG/2.5ML NEB* 0.5 MG/2.5 ML NEB.SOLN INH ONE (19:58)
[2018-03-26] MEDS ORDERED: Albuterol 2.5 MG/3 ML NEB.SOL* (0.083%) INH ONE (19:58)
[2018-03-26] MEDS ORDERED: methylPREDNISolone 125 MG* 2 ML VIAL IM ONE (19:58)
[2018-03-26 20:04] VITALS: BP 140/93
[2018-03-26] MEDS ORDERED: methylPREDNISolone SOD 40 MG* 1 ML VIAL IM ONE (20:12)
--- NOTE | 2018-03-26 20:20 | UC ---
Respiratory Complaint HPI - HPI Summary HPI Summary: C/O cough with SOB, x 1 1/2 weeks. Much worse last 2 days. Using albuterol up to every 1 1/2 hours. C/O sinus headache frontal, worse with cough. Some chills. - History of Current Complaint Chief Complaint: UCGeneralIllness Stated Complaint: COUGH/CHEST CONGESTION Time Seen by Provider: 03/26/18 19:56 Hx Obtained From: Patient Onset/Duration: Gradual Onset, Lasting Weeks - 1 1/2, Worse Since - last 2 days. Timing: Constant Severity Initially: Mild Severity Currently: Severe Pain Intensity: 5 Character: Cough: Productive Aggravating Factors: Deep Breaths, Recumbent Position Alleviating Factors: Nothing Associated Signs And Symptoms: Positive: Dyspnea, Chills, Wheezing, Nasal Congestion, Hoarseness - Allergies/Home Medications Allergies/Adverse Reactions: Allergies Allergy/AdvReac Type Severity Reaction Status Date / Time No Known Allergies Allergy Verified 03/26/18 19:55 Home Medications: Home Medications Ezetimibe TAB* [Zetia TAB*] 10 mg PO BEDTIME 03/26/18 [History Confirmed ] PMH/Surg Hx/FS Hx/Imm Hx Endocrine History: Dyslipidemia Cardiovascular History: Hypertension - Surgical History Surgical History: Yes Surgery Procedure, Year, and Place: spleenectomy. Tonsils. 5 ACL. appy. 7 hernia's - Family History Known Family History: Positive: None, Cardiac Disease, Hypertension, Diabetes - Social History Occupation: Employed Full-time Lives: With Family Alcohol Use: Daily Alcohol Amount: beer daily Substance Use Type: None Smoking Status (MU): Former Smoker Type: Cigars When Did the Patient Quit Smoking/Using Tobacco: 8 yrs - Immunization History Most Recent Influenza Vaccination: not this season Most Recent Tetanus Shot: unknown Review of Systems Constitutional: Chills ENT: Sinus Congestion Respiratory: Shortness Of Breath, Cough Neurological: Headache Is Patient Immunocompromised?: No All Other Systems Reviewed And Are Negative: Yes Physical Exam Triage Information Reviewed: Yes Appearance: No Pain Distress, Well-Nourished, Ill-Appearing - wheezing at rest. Short of breath. Vital Signs: Initial Vital Signs Temp 99 F 03/26/18 19:57 Pulse 82 03/26/18 19:57 Resp 20 03/26/18 19:57 BP 140/93 09/02/18 19:57 Pulse Ox 99 03/26/18 19:57 Vital Signs Reviewed: Yes Eyes: Positive: Conjunctiva Inflamed ENT: Positive: Pharynx normal, TMs normal Neck exam: Normal Respiratory: Positive: Accessory muscle use, Wheezing - diffuse inspiratory and expiratory wheezes. Cardiovascular Exam: Normal Musculoskeletal Exam: Normal Neurological Exam: Normal Psychological Exam: Normal Skin Exam: Normal UC Diagnostic Evaluation - Laboratory O2 Sat by Pulse Oximetry: 99 - Radiology Xray Interpretation: Positive (See Comments) - RML pneumonia Radiology Interpretation Completed By: ED Physician Respiratory Course/Dx - Differential Dx/Diagnosis Differential Diagnosis/HQI/PQRI: Asthma, Exacerbation Of COPD, Lower Resp Infection Provider Diagnoses: Right middle lobe pneumonia. Asthma with acute exacerbation. Discharge - Sign-Out/Discharge Documenting (check all that apply): Patient Departure All imaging exams completed and their final reports reviewed: No - Discharge Plan Condition: Stable Disposition: HOME Prescriptions: Cefuroxime 500 MG(NF) 500 mg PO BID #20 tab predniSONE TAB* [Deltasone 20 MG TAB*] 20 mg PO DAILY #18 tab Patient Education Materials: Asthma (ED), Community Acquired Pneumonia (ED), Cefuroxime (By mouth), Prednisone (By mouth) Referrals: David Eduardo DO [Primary Care Provider] - 3 Days (Recheck breathing and pneumonia. Get follow up chest xray in 1 month) Additional Instructions: If you need to use your albuterol inhaler more than twice a week you will need to be on an asthma controller medication. - Billing Disposition and Condition Condition: STABLE Disposition: Home
[2018-03-26] MEDS ORDERED: ceFUROXime TAB(*) 250 MG PO ONE (21:03)
--- NOTE | 2018-03-27 07:38 | RAD ---
Indication: Shortness of breath, wheezing. 2 views of the chest including dual energy PA views demonstrates hyperinflated lung muñoz. No pleural fluid, pneumonia or pneumothorax is noted. No evidence of alveolar consolidation is noted. IMPRESSION: Hyperinflated lung muñoz without evidence of active cardiopulmonary disease.
--- NOTE | 2018-03-27 07:59 | UC ---
- Progress Note Progress Note: Patient Name: CHASTITY JOHNSON Medical Record#: [id number] Ordering Physician: Chastity Wolf MD Acct.#: [id number] : 1955 Age: 62 Sex: M Location: [facility] Exam Date: 03/26/182022 ADM Status: [facility] ER Order Information: CHEST PA & LAT 2 VWS Accession Number: [id number] CPT: 33804 Indication: Shortness of breath, wheezing. 2 views of the chest including dual energy PA views demonstrates hyperinflated lung muñoz. No pleural fluid, pneumonia or pneumothorax is noted. No evidence of alveolar consolidation is noted. IMPRESSION: Hyperinflated lung muñoz without evidence of active cardiopulmonary disease. <Electronically signed by Klaudia Humphries MD in OV> 03/27/18734 Dictated By: Klaudia Humphries MD Dictated Date/Time: 03/27/18734 Transcribed Date/Time: 03/27/18733 Copy to: CC:Chastity Wolf MD; David Eduardo DO Imaging [facility] [place] [address] [place] [address] ph [phone]) ph ([phone]) ph ([phone]) This report is only to be considered final once signed by the Provider(s) as displayed in the "<Electronically Signed by >" field (s). Absence of a signature indicates the report is in a draft status and still needs to be finalized. In the event this document was created by someone other than the signing Provider, the individual initiating the document will be listed in the "Entered by:" or "Dictated by:" muñoz. 1 of 1 Discharge - Sign-Out/Discharge Documenting (check all that apply): Post-Discharge Follow Up All imaging exams completed and their final reports reviewed: Yes - Discharge Plan Condition: Stable Disposition: HOME Prescriptions: Cefuroxime 500 MG(NF) 500 mg PO BID #20 tab predniSONE TAB* [Deltasone 20 MG TAB*] 20 mg PO DAILY #18 tab Patient Education Materials: Cefuroxime (By mouth), Prednisone (By mouth), Asthma (ED), Community Acquired Pneumonia (ED) Referrals: David Eduardo DO [Primary Care Provider] - 3 Days (Recheck breathing and pneumonia. Get follow up chest xray in 1 month) Additional Instructions: If you need to use your albuterol inhaler more than twice a week you will need to be on an asthma controller medication. - Billing Disposition and Condition Condition: STABLE Disposition: Home
== END 2018-03-26 21:25 | disposition home or self-care (01) ==
LOC: UCCORT 19:36
DX: J18.9 Pneumonia, unspecified organism (principal); J45.901 Unspecified asthma with (acute) exacerbation; E78.5 Hyperlipidemia, unspecified; Z79.899 Other long term (current) drug therapy; Z87.891 Personal history of nicotine dependence
CPT/HCPCS: 71046; 96372; 99212; G0463; J2930

== ENCOUNTER 2018-12-13 14:34 | Emergency (ER) | payer BC ==
[2018-12-13] MEDS ORDERED: predniSONE TAB* 20 MG PO ONE (14:38)
[2018-12-13] MEDS ORDERED: Albuterol/Ipratropium NEB.SOL* Albuterol 2.5 MG/Ipratropium 0.5 MG 3 ML INH ONE (14:38)
--- NOTE | 2018-12-13 14:47 | UC ---
General HPI - HPI Summary HPI Summary: 1 WEEK HX OF WORSENING COUGH WITH CONGESTION, SOB AND WHEEZING. DENIES FEVER AND CHEST PAIN. USING HIS PROAIR WITHOUT RELIEF. HX COPD. - History of Current Complaint Stated Complaint: TROUBLE BREATHING Time Seen by Provider: 12/13/18 14:37 Hx Obtained From: Patient Onset/Duration: Gradual Onset Timing: Constant Associated Signs & Symptoms: Positive: Cough, SOB, Wheezing. Negative: Chest Pain, Fever - Allergy/Home Medications Allergies/Adverse Reactions: Allergies Allergy/AdvReac Type Severity Reaction Status Date / Time No Known Allergies Allergy Verified 12/13/18 14:41 PMH/Surg Hx/FS Hx/Imm Hx Cardiovascular History: Hypertension Respiratory History: COPD - Surgical History Surgical History: Yes Surgery Procedure, Year, and Place: spleenectomy. Tonsils. 5 ACL. appy. 7 hernia's - Family History Known Family History: Positive: None, Cardiac Disease, Hypertension, Diabetes - Social History Alcohol Use: Daily Alcohol Amount: beer daily Substance Use Type: None Smoking Status (MU): Former Smoker Type: Cigars When Did the Patient Quit Smoking/Using Tobacco: 8 yrs - Immunization History Most Recent Influenza Vaccination: not this season Most Recent Tetanus Shot: unknown Review of Systems All Other Systems Reviewed And Are Negative: Yes Constitutional: Negative: Fever, Chills Respiratory: Positive: Shortness Of Breath, Cough Cardiovascular: Negative: Palpitations, Chest Pain Physical Exam Triage Information Reviewed: Yes Appearance: Well-Appearing Vital Signs Reviewed: Yes Eyes: Positive: Conjunctiva Clear ENT: Positive: Normal ENT inspection Neck: Positive: Supple, Nontender, No Lymphadenopathy Respiratory: Positive: Respiratory distress - SLIGHT, Decreased breath sounds, Wheezing Cardiovascular: Positive: RRR, No Murmur Abdomen Description: Positive: Nontender Bowel Sounds: Positive: Present Musculoskeletal: Positive: ROM Intact Neurological: Positive: Alert Psychological: Positive: Age Appropriate Behavior Skin Exam: Normal Diagnostics - Radiology No standard instances Radiology Interpretation Completed By: Radiologist - #. Stigmata of obstructive lung disease. No acute pulmonary or cardiac process evident. Re-Evaluation - Re-Evaluation First Eval Re-Evaluation Time: 14:58 Change: Improved - some improvement in aeration and less wheezing. pt notes the breathing is a little easier. Second Eval Re-Evaluation Time: 15:45 Change: Improved - aeration continues to improve with less wheezing. Third Eval Re-Evaluation Time: 16:04 Change: Improved - pt states raised a large amount and now feels much better. he is requesting discharge. Course/Dx - Differential Dx - Multi-Symptom Differential Diagnoses: Other - Diagnoses Provider Diagnosis: COPD exacerbation Discharge - Sign-Out/Discharge Documenting (check all that apply): Patient Departure All imaging exams completed and their final reports reviewed: Yes - Discharge Plan Condition: Stable Disposition: HOME Prescriptions: Albuterol HFA INHALER* [Ventolin HFA Inhaler*] 2 puff INH Q6H #1 mdi Azithromycin TAB* [Zithromax TAB (Z-TOMASA) 250 mg #6 tabs] 2 tab PO .TODAY, THEN 1 DAILY #1 tomasa predniSONE [Prednisone 20 MG TAB] 40 mg PO DAILY 4 Days #8 tablet Patient Education Materials: COPD (Chronic Obstructive Pulmonary Disease) (ED) Referrals: David Eduardo DO [Primary Care Provider] - 7 Days - Billing Disposition and Condition Condition: STABLE Disposition: Home
[2018-12-13] MEDS ORDERED: Albuterol 2.5 MG/3 ML NEB.SOL* (0.083%) INH ONE (15:12)
[2018-12-13 15:46] VITALS: BP 124/76
[2018-12-13] MEDS ORDERED: methylPREDNISolone 125 MG* 2 ML VIAL IM ONE (15:46)
== END 2018-12-13 16:16 | disposition home or self-care (01) ==
LOC: UCCORT 14:34
DX: J44.1 Chronic obstructive pulmonary disease with (acute) exacerbation (principal); I10 Essential (primary) hypertension; Z87.891 Personal history of nicotine dependence
CPT/HCPCS: 71046; 99213; A9270-GY; G0463; J2930; J7512